=== PATIENT | male | born 1935 | race Caucasian/White ===

== ENCOUNTER 2016-11-28 11:57 | Emergency (ER) | payer MEDICARE, OTHER ==
[2016-11-28 13:45] LABS: BASO % 0.4 % (0.0-1.0); EOS # 0.2 K/mm3 (0.0-0.50); EOS % 3.3 % (0.0-3.0); LARGE UNSTAINED CELL # 0.1 K/mm3 (0.0-0.4); LARGE UNSTAINED CELL % 1.5 % (0.0-4.0); LYMPH # 0.9 K/mm3 (1.5-4.5); LYMPH % 12.8 % (24.0-44.0); MEAN CORPUSCULAR HGB CONC 32.7 g/dl (32.0-36.5); MEAN CORPUSCULAR VOLUME 91.8 fl (80.0-96.0); MONO # 0.3 K/mm3 (0.0-0.8); MONO % 4.5 % (0.0-5.0); NEUTROPHILS # 4.6 K/mm3 (1.8-7.7); NEUTROPHILS % 77.6 % (36.0-66.0); PLATELET COUNT, AUTOMATED 143 k/mm3 (150-450); RED CELL DISTRIBUTION WIDTH 15.8 % (11.5-14.5); WHITE BLOOD COUNT 5.9 K/mm3 (4.0-10.0)
[2016-11-28 14:04] LABS: ALBUMIN/GLOBULIN RATIO 0.67 (1.00-1.93); ALKALINE PHOSPHATASE 75 U/L (45-117); ALT/SGPT 29 U/L (12-78); ANION GAP 10 MEQ/L (8-16); AST/SGOT 22 U/L (15-37); BILIRUBIN,TOTAL 0.3 MG/DL (0.2-1.0); BLOOD UREA NITROGEN 31 MG/DL (7-18); CALCIUM LEVEL 8.1 MG/DL (8.8-10.2); CARBON DIOXIDE LEVEL 24 MEQ/L (21-32); CHLORIDE LEVEL 108 MEQ/L (98-107); CREATININE FOR GFR 0.75 MG/DL (0.70-1.30); GLOMERULAR FILTRATION RATE > 60.0 (>35); GLUCOSE, FASTING 97 MG/DL (83-110); POTASSIUM SERUM 4.3 MEQ/L (3.5-5.1); SODIUM LEVEL 142 MEQ/L (136-145)
--- NOTE | 2016-11-28 15:29 | EDDOCDS ---
Nurse's Notes [facility] Name: Ezekiel Pal Age: 81 yrs Sex: Male : 1935 Arrival Date: 11/28/2016 Time: 11:57 Bed I3 / M3 Private MD: Nicole Toth A Diagnosis: Gastrostomy complications;Encounter for attention to gastrostomy Presentation: 11/28 12:06 Presenting complaint: Patient states: has a feeding tube the stitch came out and the dsf tube moves and there was some green drainage noted around the tube. Pt had the feeding tube placed in [place] . pt wants his feeding tube checked. Adult Sepsis Screening: The patient does not have new or worsening altered mentation. Patient's respiratory rate is less than 22. Systolic blood pressure is greater than 100. Patient has a qSOFA score of 0- Negative Sepsis Screen. Suicide/Homicide risk assessment- the patient denies having any suicidal and/or homicidal ideations and does not present with any other emotional, behavioral or mental health complaints. Status: Patient is not a multimedia services manager or dependent. Transition of care: patient was not received from another setting of care. 12:06 Method Of Arrival: Walkin/Carried/Asstd dsf 12:06 Acuity: ABDOUL Level 4 dsf Triage Assessment: 12:13 General: Appears in no apparent distress, Behavior is appropriate for age, cooperative. dsf Pain: Denies pain. Neurological: Level of Consciousness is awake, alert. GI: Reports green stuff around the feeding tube. Historical: - Allergies: Demerol (heart stops); - Home Meds: 1. Protonix 40 mg Oral TbEC 1 tab once daily (Last dose: 11/27/2016) 2. dexamethasone 2 mg Oral tab as needed (Last dose: 11/28/2016 08:45) 3. digoxin 125 mcg Oral tab 1 tab once daily (Last dose: 11/28/2016 08:45) 4. losartan 50 mg oral tab 1 tab once daily (Last dose: 11/28/2016 08:45) 5. Spiriva with HandiHaler 18 mcg Inhl CpDv 1 cap once daily (Last dose: 11/28/2016 08:45) 6. asmanex twist inhaler 220 mcg nightly (Last dose: 11/27/2016) 7. ventolin inhaler 2 puff as needed (Last dose: 11/28/2016 09:00) 8. diphenoxylate-atropine 2.5-0.025 mg Oral tab as needed (Last dose: 11/28/2016 09:15) 9. cyramza every wednesday chemo treatment 10. fentanyl 25 mcg/hr Topical pt72 1 patch every 72 hours due to be changed today - PMHx: esphogeal cancer; COPD; GERD; Irregular heart rate; - PSHx: feeding tube; stomach surgery; Gall Bladder Removal; Appendectomy; Tonsillectomy; Adenoidectomy; - Social history: Smoking status: Patient states former smoker of tobacco. No barriers to communication noted, The patient speaks fluent Angolan, Speaks appropriately for age. - Family history: No immediate family members are acutely ill. - : The pt / caregiver states he / she is not on anticoagulants. Home medication list is obtained from the patient. - Exposure Risk Screening:: None identified. Screenin:56 Screening information is obtained from the patient. Primary language is Angolan. Fall jam1 risk: No risks identified. Assistance ADL's: requires no assistance with activities of daily living. Abuse/DV Screen: The patient / caregiver reports he/she is: not in a situation that causes fear, pain or injury. Nutritional screening: No deficits noted. Exposure Risk Screening: None identified. Advance Directives: Currently, there is a health care proxy, daughter of pt agata jose. There is an active DNR order but there is no copy available at this time. There is a living will, but a copy is not available at this time. There is an active Power of Supervisor [employer], daughter agata jose. Advance directive information does not know if advance directives have been placed in a prior [facility] medical record. Further advance directive information is declined. 13:02 Nutritional screening: On feeding tube. jam1 15:26 home support is adequate. srm Assessment: 12:46 General: Appears in no apparent distress, Behavior is appropriate for age, cooperative. mb9 Pain: Location: right upper quadrant and right lower quadrant. incision site. Pain currently is 3 out of 10 on a pain scale. Respiratory: Airway is patent Respiratory effort is even, unlabored. GI: Reports pt states, "The stitch came out of my feeding tube and its been moving around can you ultrasound it and make sure it all looks ok?". pt reports he fed himself this am with no apparent problem. pt has a small amount of drainage to the dressing that is present. 15:26 Reassessment: Patient appears in no apparent distress at this time. Patient states srm feeling better. Patient states symptoms have improved. General: Appears in no apparent distress, comfortable, Behavior is appropriate for age, cooperative. Respiratory: Airway is patent Respiratory effort is even, unlabored. Vital Signs: 12:01 BP 129 / 82; Pulse 88; Resp 18 S; Temp 96.6(O); Pulse Ox 97% on R/A; Weight 65.77 kg gr2 (R); Height 6 ft. 0 in. (182.88 cm); Pain 4/10; 15:26 BP 122 / 78; Pulse 72; Resp 17; Temp 98.7; Pulse Ox 98% ; srm 12:01 Body Mass Index 19.67 (65.77 kg, 182.88 cm) gr2 Vitals: 12:01 Log In Time: November 28, 2016 at 12:01. gr2 ED Course: 11:59 Patient visited by Tran Jaime. gr2 11:59 Nicole Toth is Private Physician. gr2 11:59 Patient moved to Waiting gr2 12:03 Patient visited by Tran Jaime. gr2 12:04 Patient moved to Pre RCE gr2 12:08 Triage Initiated dsf 12:16 Patient moved to I3 / M3 dsf 12:56 Pt greeted and oriented to ED. Patient advised of names of staff involved in care, jam1 location of call [place], wait times and NPO status. Patient has correct armband on for positive identification. Bed in low position. Call light in reach. Side rails up X 1. Door closed. 13:11 Esperanza Mitchell PA-C is PHCP. ef1 13:11 Ginny Pena MD is Attending Physician. ef1 13:11 PHCP role handed off by Esperanza Mitchell PA-C btw 13:11 Orville Garcia PA is PHCP. btw 13:12 Patient visited by Orville Garcia PA. btw 13:38 CBC with Diff Sent. nb2 13:38 Complete Comphrensive Metabolic Sent. nb2 13:38 Wound Culture & GS - All Other Sources Sent. nb2 13:59 Dressings: 4X4s X 1; pts feeding tube dressing changed at this time. site appeared to mb9 have a moderate amount of purulent drainage present that smelled foul. dressing replaced with 1 4x4. 14:01 [facility] Payment Agreement was scanned into [employer] and attached to record. lg 14:02 Patient visited by David Mendiola RN. mb9 15:03 Guilherme Raphael MD is Referral Physician. btw 15:26 The patient / caregiver is instructed regarding the plan of care and ED course. srm 15:26 No IV's were initiated during this patient's visit. No procedures done that require srm assistance. Order Results: Lab Order: CBC with Diff; SPEC'M 11/28/16 13:29 Test: WHITE BLOOD COUNT; Value: 5.9; Range: 4.0-10.0; Units: K/mm3; Status: F Test: RED BLOOD COUNT; Value: 3.66; Range: 4.30-6.10; Abnormal: Below low normal; Units: M/mm3; Status: F Test: HEMOGLOBIN; Value: 11.0; Range: 14.0-18.0; Abnormal: Below low normal; Units: g/dl; Status: F Test: HEMATOCRIT; Value: 33.6; Range: 42.0-52.0; Abnormal: Below low normal; Units: %; Status: F Test: MEAN CORPUSCULAR VOLUME; Value: 91.8; Range: 80.0-96.0; Units: fl; Status: F Test: MEAN CORPUSCULAR HEMOGLOBIN; Value: 30.0; Range: 27.0-33.0; Units: pg; Status: F Test: MEAN CORPUSCULAR HGB CONC; Value: 32.7; Range: 32.0-36.5; Units: g/dl; Status: F Test: RED CELL DISTRIBUTION WIDTH; Value: 15.8; Range: 11.5-14.5; Abnormal: Above high normal; Units: %; Status: F Test: PLATELET COUNT, AUTOMATED; Value: 143; Range: 150-450; Abnormal: Below low normal; Units: k/mm3; Status: F Test: NEUTROPHILS %; Value: 77.6; Range: 36.0-66.0; Abnormal: Above high normal; Units: %; Status: F Test: LYMPH %; Value: 12.8; Range: 24.0-44.0; Abnormal: Below low normal; Units: %; Status: F Test: MONO %; Value: 4.5; Range: 0.0-5.0; Units: %; Status: F Test: EOS %; Value: 3.3; Range: 0.0-3.0; Abnormal: Above high normal; Units: %; Status: F Test: BASO %; Value: 0.4; Range: 0.0-1.0; Units: %; Status: F Test: LARGE UNSTAINED CELL %; Value: 1.5; Range: 0.0-4.0; Units: %; Status: F Test: NEUTROPHILS #; Value: 4.6; Range: 1.8-7.7; Units: K/mm3; Status: F Test: LYMPH #; Value: 0.9; Range: 1.5-4.5; Abnormal: Below low normal; Units: K/mm3; Status: F Test: MONO #; Value: 0.3; Range: 0.0-0.8; Units: K/mm3; Status: F Test: EOS #; Value: 0.2; Range: 0.0-0.50; Units: K/mm3; Status: F Test: BASO #; Value: 0.0; Range: 0.0-0.2; Units: K/mm3; Status: F Test: LARGE UNSTAINED CELL #; Value: 0.1; Range: 0.0-0.4; Units: K/mm3; Status: F Lab Order: Complete Comphrensive Metabolic; SPEC'M 11/28/16 13:29 Test: GLUCOSE, FASTING; Value: 97; Range: 83-110; Units: MG/DL; Status: F Test: BLOOD UREA NITROGEN; Value: 31; Range: 7-18; Abnormal: Above high normal; Units: MG/DL; Status: F Test: CREATININE FOR GFR; Value: 0.75; Range: 0.70-1.30; Units: MG/DL; Status: F Test: GLOMERULAR FILTRATION RATE; Value: > 60.0; Range: >35; Status: F Test: SODIUM LEVEL; Value: 142; Range: 136-145; Units: MEQ/L; Status: F Test: POTASSIUM SERUM; Value: 4.3; Range: 3.5-5.1; Units: MEQ/L; Status: F Test: CHLORIDE LEVEL; Value: 108; Range: 98-107; Abnormal: Above high normal; Units: MEQ/L; Status: F Test: CARBON DIOXIDE LEVEL; Value: 24; Range: 21-32; Units: MEQ/L; Status: F Test: ANION GAP; Value: 10; Range: 8-16; Units: MEQ/L; Status: F Test: CALCIUM LEVEL; Value: 8.1; Range: 8.8-10.2; Abnormal: Below low normal; Units: MG/DL; Status: F Test: AST/SGOT; Value: 22; Range: 15-37; Units: U/L; Status: F Test: ALT/SGPT; Value: 29; Range: 12-78; Units: U/L; Status: F Test: ALKALINE PHOSPHATASE; Value: 75; Range: 45-117; Units: U/L; Status: F Test: BILIRUBIN,TOTAL; Value: 0.3; Range: 0.2-1.0; Units: MG/DL; Status: F Test: TOTAL PROTEIN; Value: 5.0; Range: 6.4-8.2; Abnormal: Below low normal; Units: GM/DL; Status: F Test: ALBUMIN; Value: 2.0; Range: 3.2-5.2; Abnormal: Below low normal; Units: GM/DL; Status: F Test: ALBUMIN/GLOBULIN RATIO; Value: 0.67; Range: 1.00-1.93; Abnormal: Below low normal; Status: F Test Note: ; Units are mL/min/1.73 m2 Chronic Kidney Disease Staging per NKF: Stage I & II GFR >=60 Normal to Mildly Decreased Stage III GFR 30-59 Moderately Decreased Stage IV GFR 15-29 Severely Decreased Stage V GFR <15 Very Little GFR Left ESRD GFR <15 on ACQUISITION PROFESSIONAL Lab Order: ESR; SPEC'M 11/28/16 13:29 Test: ERYTHROCYTE SEDIMENTATION RATE; Value: 16; Range: 0-20; Units: mm/hr; Status: F Lab Order: C REACTIVE PROTEIN QUANTITATIV; SPEC'M 11/28/16 13:29 Test: C REACTIVE PROTEIN QUANTITATIV; Value: 1.48; Range: 0.00-0.30; Abnormal: Above high normal; Units: MG/DL; Status: F Outcome: 15:03 Discharge ordered by Provider. bt 15:26 Discharge Assessment: Patient awake, alert and oriented x 3. No cognitive and/or srm functional deficits noted. Patient verbalized understanding of disposition instructions. patient administered narcotics - no. The following High Risk Discharge criteria are identified: None. Discharged to home ambulatory. Condition: good Condition: stable Condition: improved. Discharge instructions given to patient, Instructed on discharge instructions, follow up and referral plans. medication usage, Demonstrated understanding of instructions, medications, Pt was receptive of discharge instructions/ teaching. Prescriptions given X 2. No special radiology studies were completed. Property :Personal belongings accompany Pt. 15:28 Patient left the ED. srm Signatures: Irina Dahl, RN RN srm Sara Brown, PEG SEMAPHORE OPERATOR jam1 Melissa Pate, Reg Reg lg Esperanza Mitchell, PA-C PA-C ef1 Orville Garcia, Mamta Justice RN RN dsf Tran Jaime gr2 David MendiolaRN RN mb9 Renate Preciado2 Corrections: (The following items were deleted from the chart) 12:14 12:06 Presenting complaint: Patient states: has a feeding tube the stitch came out and dsf the tube moves and there was some green drainage noted around the tube. Pt had the feeding tube placed in [place] ds 12:14 12:06 Acuity: ABDOUL Level 3 dsf dsf MTDD
--- NOTE | 2016-11-28 15:29 | EDDOCDS ---
Physician Documentation [facility] Name: Ezekiel Pal Age: 81 yrs Sex: Male : 1935 Arrival Date: 11/28/2016 Time: 11:57 Bed I3 / M3 Private MD: Nicole Toth A Disposition: 11/28/16 15:03 Discharged to Home/Self Care. Impression: Gastrostomy complications, Encounter for attention to gastrostomy. - Condition is Stable. - Discharge Instructions: Gastrostomy Tube Home Guide, Adult, PEG, Home Care, [id number]. - Prescriptions for Cipro 500 mg Oral Tablet - take 1 tablet by ORAL route every 12 hours; 14 tablet. Flagyl 500 mg Oral Tablet - take 1 tablet by ORAL route every 8 hours for 10 days; 30 tablet. - Medication Reconciliation, Local Pharmacy Hours form. - Follow up: Guilherme Raphael MD; When: 2 - 3 days; Reason: Further diagnostic work-up, Recheck today's complaints, Continuance of care. - Problem is new. - Symptoms are unchanged. Historical: - Allergies: Demerol (heart stops); - Home Meds: 1. Protonix 40 mg Oral TbEC 1 tab once daily (Last dose: 11/27/2016) 2. dexamethasone 2 mg Oral tab as needed (Last dose: 11/28/2016 08:45) 3. digoxin 125 mcg Oral tab 1 tab once daily (Last dose: 11/28/2016 08:45) 4. losartan 50 mg oral tab 1 tab once daily (Last dose: 11/28/2016 08:45) 5. Spiriva with HandiHaler 18 mcg Inhl CpDv 1 cap once daily (Last dose: 11/28/2016 08:45) 6. asmanex twist inhaler 220 mcg nightly (Last dose: 11/27/2016) 7. ventolin inhaler 2 puff as needed (Last dose: 11/28/2016 09:00) 8. diphenoxylate-atropine 2.5-0.025 mg Oral tab as needed (Last dose: 11/28/2016 09:15) 9. cyramza every wednesday chemo treatment 10. fentanyl 25 mcg/hr Topical pt72 1 patch every 72 hours due to be changed today - PMHx: esphogeal cancer; COPD; GERD; Irregular heart rate; - PSHx: feeding tube; stomach surgery; Gall Bladder Removal; Appendectomy; Tonsillectomy; Adenoidectomy; - Social history: Smoking status: Patient states former smoker of tobacco. No barriers to communication noted, The patient speaks fluent Bangladeshi, Speaks appropriately for age. - Family history: No immediate family members are acutely ill. - : The pt / caregiver states he / she is not on anticoagulants. Home medication list is obtained from the patient. - Exposure Risk Screening:: None identified. Vital Signs: 11/28 12:01 BP 129 / 82; Pulse 88; Resp 18 S; Temp 96.6(O); Pulse Ox 97% on R/A; Weight 65.77 kg / gr2 145 lbs (R); Height 6 ft. 0 in. (182.88 cm); Pain 4/10; 15:26 BP 122 / 78; Pulse 72; Resp 17; Temp 98.7; Pulse Ox 98% ; srm 12:01 Body Mass Index 19.67 (65.77 kg, 182.88 cm) gr2 MDM: 13:18 Financial registration complete. lg 13:24 CBC with Diff Ordered. EDMS 13:24 Complete Comphrensive Metabolic Ordered. EDMS 13:24 Wound Culture & GS - All Other Sources Ordered. EDMS 13:51 CBC with Diff Reviewed. btw 13:52 ESR Ordered. EDMS 14:01 [facility] Payment Agreement was scanned into [employer] and attached to record. lg 14:06 C REACTIVE PROTEIN QUANTITATIV Ordered. EDMS 14:48 Complete Comphrensive Metabolic Reviewed. btw 14:48 C REACTIVE PROTEIN QUANTITATIV Reviewed. btw 14:48 ESR Reviewed. btw Signatures: Dispatcher [employer] EDMS Irina Dahl RN RN srm Melissa Pate, Reg Reg lg Orville Garcia PA PA btw Mamta Cavanaugh RN RN dsf The chart was reviewed and I authenticate all verbal orders and agree with the evaluation and treatment provided.Corrections: (The following items were deleted from the chart) 14:06 13:52 C REACTIVE PROTEIN QUANTITATIV+LAB ordered. EDMS EDMS Attachments: 14:01 [facility] Payment Agreement lg MTDD
--- NOTE | 2016-11-30 16:29 | EDDOCDS ---
Physician Documentation [facility] Name: Ezekiel Pal Age: 81 yrs Sex: Male : 1935 Arrival Date: 11/28/2016 Time: 11:57 Bed I3 / M3 Private MD: Nicole Toth A Disposition: 11/28/16 15:03 Discharged to Home/Self Care. Impression: Gastrostomy complications, Encounter for attention to gastrostomy. - Condition is Stable. - Discharge Instructions: Gastrostomy Tube Home Guide, Adult, PEG, Home Care, [id number]. - Prescriptions for Cipro 500 mg Oral Tablet - take 1 tablet by ORAL route every 12 hours; 14 tablet. Flagyl 500 mg Oral Tablet - take 1 tablet by ORAL route every 8 hours for 10 days; 30 tablet. - Medication Reconciliation, Local Pharmacy Hours form. - Follow up: Guilherme Raphael MD; When: 2 - 3 days; Reason: Further diagnostic work-up, Recheck today's complaints, Continuance of care. - Problem is new. - Symptoms are unchanged. Historical: - Allergies: Demerol (heart stops); - Home Meds: 1. Protonix 40 mg Oral TbEC 1 tab once daily (Last dose: 11/27/2016) 2. dexamethasone 2 mg Oral tab as needed (Last dose: 11/28/2016 08:45) 3. digoxin 125 mcg Oral tab 1 tab once daily (Last dose: 11/28/2016 08:45) 4. losartan 50 mg oral tab 1 tab once daily (Last dose: 11/28/2016 08:45) 5. Spiriva with HandiHaler 18 mcg Inhl CpDv 1 cap once daily (Last dose: 11/28/2016 08:45) 6. asmanex twist inhaler 220 mcg nightly (Last dose: 11/27/2016) 7. ventolin inhaler 2 puff as needed (Last dose: 11/28/2016 09:00) 8. diphenoxylate-atropine 2.5-0.025 mg Oral tab as needed (Last dose: 11/28/2016 09:15) 9. cyramza every wednesday chemo treatment 10. fentanyl 25 mcg/hr Topical pt72 1 patch every 72 hours due to be changed today - PMHx: esphogeal cancer; COPD; GERD; Irregular heart rate; - PSHx: feeding tube; stomach surgery; Gall Bladder Removal; Appendectomy; Tonsillectomy; Adenoidectomy; - Social history: Smoking status: Patient states former smoker of tobacco. No barriers to communication noted, The patient speaks fluent Malian, Speaks appropriately for age. - Family history: No immediate family members are acutely ill. - : The pt / caregiver states he / she is not on anticoagulants. Home medication list is obtained from the patient. - Exposure Risk Screening:: None identified. Vital Signs: 11/28 12:01 BP 129 / 82; Pulse 88; Resp 18 S; Temp 96.6(O); Pulse Ox 97% on R/A; Weight 65.77 kg / gr2 145 lbs (R); Height 6 ft. 0 in. (182.88 cm); Pain 4/10; 15:26 BP 122 / 78; Pulse 72; Resp 17; Temp 98.7; Pulse Ox 98% ; srm 12:01 Body Mass Index 19.67 (65.77 kg, 182.88 cm) gr2 MDM: 13:18 Financial registration complete. lg 13:24 CBC with Diff Ordered. EDMS 13:24 Complete Comphrensive Metabolic Ordered. EDMS 13:24 Wound Culture & GS - All Other Sources Ordered. EDMS 13:51 CBC with Diff Reviewed. btw 13:52 ESR Ordered. EDMS 14:01 [facility] Payment Agreement was scanned into [employer] and attached to record. lg 14:06 C REACTIVE PROTEIN QUANTITATIV Ordered. EDMS 14:48 Complete Comphrensive Metabolic Reviewed. btw 14:48 C REACTIVE PROTEIN QUANTITATIV Reviewed. btw 14:48 ESR Reviewed. btw 18:10 T-Sheet-- Draft Copy was scanned into [employer] and attached to record. klr Signatures: Dispatcher [employer] EDMS Irina Dahl RN RN srm Ganter, LoriLee, Emmanuel Reg lg Orville Garcia PA PA btw Fuller, Desiree, RN RN dsf Redder, Kathie klr The chart was reviewed and I authenticate all verbal orders and agree with the evaluation and treatment provided.Corrections: (The following items were deleted from the chart) 14:06 13:52 C REACTIVE PROTEIN QUANTITATIV+LAB ordered. EDMS EDMS Attachments: 14:01 [facility] Payment Agreement lg 18:10 T-Sheet-- Draft Copy klr Chart Complete MTDD
--- NOTE | 2016-11-30 16:29 | EDDOCDS ---
Physician Documentation [facility] [place] Name: Ezekiel Pal Age: 81 yrs Sex: Male : 1935 Arrival Date: 11/28/2016 Time: 11:57 Bed I3 / M3 Private MD: Nicole Toth A Disposition: 11/28/16 15:03 Discharged to Home/Self Care. Impression: Gastrostomy complications, Encounter for attention to gastrostomy. - Condition is Stable. - Discharge Instructions: Gastrostomy Tube Home Guide, Adult, PEG, Home Care, [id number]. - Prescriptions for Cipro 500 mg Oral Tablet - take 1 tablet by ORAL route every 12 hours; 14 tablet. Flagyl 500 mg Oral Tablet - take 1 tablet by ORAL route every 8 hours for 10 days; 30 tablet. - Medication Reconciliation, Local Pharmacy Hours form. - Follow up: Guilherme Raphael MD; When: 2 - 3 days; Reason: Further diagnostic work-up, Recheck today's complaints, Continuance of care. - Problem is new. - Symptoms are unchanged. Historical: - Allergies: Demerol (heart stops); - Home Meds: 1. Protonix 40 mg Oral TbEC 1 tab once daily (Last dose: 11/27/2016) 2. dexamethasone 2 mg Oral tab as needed (Last dose: 11/28/2016 08:45) 3. digoxin 125 mcg Oral tab 1 tab once daily (Last dose: 11/28/2016 08:45) 4. losartan 50 mg oral tab 1 tab once daily (Last dose: 11/28/2016 08:45) 5. Spiriva with HandiHaler 18 mcg Inhl CpDv 1 cap once daily (Last dose: 11/28/2016 08:45) 6. asmanex twist inhaler 220 mcg nightly (Last dose: 11/27/2016) 7. ventolin inhaler 2 puff as needed (Last dose: 11/28/2016 09:00) 8. diphenoxylate-atropine 2.5-0.025 mg Oral tab as needed (Last dose: 11/28/2016 09:15) 9. cyramza every wednesday chemo treatment 10. fentanyl 25 mcg/hr Topical pt72 1 patch every 72 hours due to be changed today - PMHx: esphogeal cancer; COPD; GERD; Irregular heart rate; - PSHx: feeding tube; stomach surgery; Gall Bladder Removal; Appendectomy; Tonsillectomy; Adenoidectomy; - Social history: Smoking status: Patient states former smoker of tobacco. No barriers to communication noted, The patient speaks fluent Niuean, Speaks appropriately for age. - Family history: No immediate family members are acutely ill. - : The pt / caregiver states he / she is not on anticoagulants. Home medication list is obtained from the patient. - Exposure Risk Screening:: None identified. Vital Signs: 11/28 12:01 BP 129 / 82; Pulse 88; Resp 18 S; Temp 96.6(O); Pulse Ox 97% on R/A; Weight 65.77 kg / gr2 145 lbs (R); Height 6 ft. 0 in. (182.88 cm); Pain 4/10; 15:26 BP 122 / 78; Pulse 72; Resp 17; Temp 98.7; Pulse Ox 98% ; srm 12:01 Body Mass Index 19.67 (65.77 kg, 182.88 cm) gr2 MDM: 13:18 Financial registration complete. lg 13:24 CBC with Diff Ordered. EDMS 13:24 Complete Comphrensive Metabolic Ordered. EDMS 13:24 Wound Culture & GS - All Other Sources Ordered. EDMS 13:51 CBC with Diff Reviewed. btw 13:52 ESR Ordered. EDMS 14:01 [facility] Payment Agreement was scanned into [employer] and attached to record. lg 14:06 C REACTIVE PROTEIN QUANTITATIV Ordered. EDMS 14:48 Complete Comphrensive Metabolic Reviewed. btw 14:48 C REACTIVE PROTEIN QUANTITATIV Reviewed. btw 14:48 ESR Reviewed. btw 18:10 T-Sheet-- Draft Copy was scanned into [employer] and attached to record. klr Signatures: Dispatcher [employer] EDMS Irina Dahl RN RN srm Ganter, LoriLee, Emmanuel Reg lg Orville Garcia PA PA btw Fuller, Desiree, RN RN dsf Redder, Kathie klr The chart was reviewed and I authenticate all verbal orders and agree with the evaluation and treatment provided.Corrections: (The following items were deleted from the chart) 14:06 13:52 C REACTIVE PROTEIN QUANTITATIV+LAB ordered. EDMS EDMS Attachments: 14:01 [facility] Payment Agreement lg 18:10 T-Sheet-- Draft Copy klr Chart Complete MTDD
--- NOTE | 2016-11-30 16:29 | EDDOCDS ---
Nurse's Notes [facility] Name: Ezekiel Pal Age: 81 yrs Sex: Male : 1935 Arrival Date: 11/28/2016 Time: 11:57 Bed I3 / M3 Private MD: Nicole Toth A Diagnosis: Gastrostomy complications;Encounter for attention to gastrostomy Presentation: 11/28 12:06 Presenting complaint: Patient states: has a feeding tube the stitch came out and the dsf tube moves and there was some green drainage noted around the tube. Pt had the feeding tube placed in [place] . pt wants his feeding tube checked. Adult Sepsis Screening: The patient does not have new or worsening altered mentation. Patient's respiratory rate is less than 22. Systolic blood pressure is greater than 100. Patient has a qSOFA score of 0- Negative Sepsis Screen. Suicide/Homicide risk assessment- the patient denies having any suicidal and/or homicidal ideations and does not present with any other emotional, behavioral or mental health complaints. Status: Patient is not a duplicating machine servicer or dependent. Transition of care: patient was not received from another setting of care. 12:06 Method Of Arrival: Walkin/Carried/Asstd dsf 12:06 Acuity: ABDOUL Level 4 dsf Triage Assessment: 12:13 General: Appears in no apparent distress, Behavior is appropriate for age, cooperative. dsf Pain: Denies pain. Neurological: Level of Consciousness is awake, alert. GI: Reports green stuff around the feeding tube. Historical: - Allergies: Demerol (heart stops); - Home Meds: 1. Protonix 40 mg Oral TbEC 1 tab once daily (Last dose: 11/27/2016) 2. dexamethasone 2 mg Oral tab as needed (Last dose: 11/28/2016 08:45) 3. digoxin 125 mcg Oral tab 1 tab once daily (Last dose: 11/28/2016 08:45) 4. losartan 50 mg oral tab 1 tab once daily (Last dose: 11/28/2016 08:45) 5. Spiriva with HandiHaler 18 mcg Inhl CpDv 1 cap once daily (Last dose: 11/28/2016 08:45) 6. asmanex twist inhaler 220 mcg nightly (Last dose: 11/27/2016) 7. ventolin inhaler 2 puff as needed (Last dose: 11/28/2016 09:00) 8. diphenoxylate-atropine 2.5-0.025 mg Oral tab as needed (Last dose: 11/28/2016 09:15) 9. cyramza every wednesday chemo treatment 10. fentanyl 25 mcg/hr Topical pt72 1 patch every 72 hours due to be changed today - PMHx: esphogeal cancer; COPD; GERD; Irregular heart rate; - PSHx: feeding tube; stomach surgery; Gall Bladder Removal; Appendectomy; Tonsillectomy; Adenoidectomy; - Social history: Smoking status: Patient states former smoker of tobacco. No barriers to communication noted, The patient speaks fluent [place], Speaks appropriately for age. - Family history: No immediate family members are acutely ill. - : The pt / caregiver states he / she is not on anticoagulants. Home medication list is obtained from the patient. - Exposure Risk Screening:: None identified. Screenin:56 Screening information is obtained from the patient. Primary language is [place]. Fall jam1 risk: No risks identified. Assistance ADL's: requires no assistance with activities of daily living. Abuse/DV Screen: The patient / caregiver reports he/she is: not in a situation that causes fear, pain or injury. Nutritional screening: No deficits noted. Exposure Risk Screening: None identified. Advance Directives: Currently, there is a health care proxy, daughter of pt agata jose. There is an active DNR order but there is no copy available at this time. There is a living will, but a copy is not available at this time. There is an active Power of Burr Mill Operator, daughter agata jose. Advance directive information does not know if advance directives have been placed in a prior [facility] medical record. Further advance directive information is declined. 13:02 Nutritional screening: On feeding tube. jam1 15:26 home support is adequate. srm Assessment: 12:46 General: Appears in no apparent distress, Behavior is appropriate for age, cooperative. mb9 Pain: Location: right upper quadrant and right lower quadrant. incision site. Pain currently is 3 out of 10 on a pain scale. Respiratory: Airway is patent Respiratory effort is even, unlabored. GI: Reports pt states, "The stitch came out of my feeding tube and its been moving around can you ultrasound it and make sure it all looks ok?". pt reports he fed himself this am with no apparent problem. pt has a small amount of drainage to the dressing that is present. 15:26 Reassessment: Patient appears in no apparent distress at this time. Patient states srm feeling better. Patient states symptoms have improved. General: Appears in no apparent distress, comfortable, Behavior is appropriate for age, cooperative. Respiratory: Airway is patent Respiratory effort is even, unlabored. Vital Signs: 12:01 BP 129 / 82; Pulse 88; Resp 18 S; Temp 96.6(O); Pulse Ox 97% on R/A; Weight 65.77 kg gr2 (R); Height 6 ft. 0 in. (182.88 cm); Pain 4/10; 15:26 BP 122 / 78; Pulse 72; Resp 17; Temp 98.7; Pulse Ox 98% ; srm 12:01 Body Mass Index 19.67 (65.77 kg, 182.88 cm) gr2 Vitals: 12:01 Log In Time: November 28, 2016 at 12:01. gr2 ED Course: 11:59 Patient visited by Tran Jaime. gr2 11:59 Nicole Toth is Private Physician. gr2 11:59 Patient moved to Waiting gr2 12:03 Patient visited by Tran Jaime. gr2 12:04 Patient moved to Pre RCE gr2 12:08 Triage Initiated dsf 12:16 Patient moved to I3 / M3 dsf 12:56 Pt greeted and oriented to ED. Patient advised of names of staff involved in care, jam1 location of call [place], wait times and NPO status. Patient has correct armband on for positive identification. Bed in low position. Call light in reach. Side rails up X 1. Door closed. 13:11 Esperanza Mitchell PA-C is PHCP. ef1 13:11 Ginny Pena MD is Attending Physician. ef1 13:11 PHCP role handed off by Esperanza Mitchell PA-C btw 13:11 Orville Garcia PA is PHCP. btw 13:12 Patient visited by Orville Garcia PA. btw 13:38 CBC with Diff Sent. nb2 13:38 Complete Comphrensive Metabolic Sent. nb2 13:38 Wound Culture & GS - All Other Sources Sent. nb2 13:59 Dressings: 4X4s X 1; pts feeding tube dressing changed at this time. site appeared to mb9 have a moderate amount of purulent drainage present that smelled foul. dressing replaced with 1 4x4. 14:01 [facility] Payment Agreement was scanned into [employer] and attached to record. lg 14:02 Patient visited by David Mendiola RN. mb9 15:03 Guilherme Raphael MD is Referral Physician. btw 15:26 The patient / caregiver is instructed regarding the plan of care and ED course. srm 15:26 No IV's were initiated during this patient's visit. No procedures done that require srm assistance. 18:10 T-Sheet-- Draft Copy was scanned into [employer] and attached to record. klr Order Results: Lab Order: CBC with Diff; SPEC'M 11/28/16 13:29 Test: WHITE BLOOD COUNT; Value: 5.9; Range: 4.0-10.0; Units: K/mm3; Status: F Test: RED BLOOD COUNT; Value: 3.66; Range: 4.30-6.10; Abnormal: Below low normal; Units: M/mm3; Status: F Test: HEMOGLOBIN; Value: 11.0; Range: 14.0-18.0; Abnormal: Below low normal; Units: g/dl; Status: F Test: HEMATOCRIT; Value: 33.6; Range: 42.0-52.0; Abnormal: Below low normal; Units: %; Status: F Test: MEAN CORPUSCULAR VOLUME; Value: 91.8; Range: 80.0-96.0; Units: fl; Status: F Test: MEAN CORPUSCULAR HEMOGLOBIN; Value: 30.0; Range: 27.0-33.0; Units: pg; Status: F Test: MEAN CORPUSCULAR HGB CONC; Value: 32.7; Range: 32.0-36.5; Units: g/dl; Status: F Test: RED CELL DISTRIBUTION WIDTH; Value: 15.8; Range: 11.5-14.5; Abnormal: Above high normal; Units: %; Status: F Test: PLATELET COUNT, AUTOMATED; Value: 143; Range: 150-450; Abnormal: Below low normal; Units: k/mm3; Status: F Test: NEUTROPHILS %; Value: 77.6; Range: 36.0-66.0; Abnormal: Above high normal; Units: %; Status: F Test: LYMPH %; Value: 12.8; Range: 24.0-44.0; Abnormal: Below low normal; Units: %; Status: F Test: MONO %; Value: 4.5; Range: 0.0-5.0; Units: %; Status: F Test: EOS %; Value: 3.3; Range: 0.0-3.0; Abnormal: Above high normal; Units: %; Status: F Test: BASO %; Value: 0.4; Range: 0.0-1.0; Units: %; Status: F Test: LARGE UNSTAINED CELL %; Value: 1.5; Range: 0.0-4.0; Units: %; Status: F Test: NEUTROPHILS #; Value: 4.6; Range: 1.8-7.7; Units: K/mm3; Status: F Test: LYMPH #; Value: 0.9; Range: 1.5-4.5; Abnormal: Below low normal; Units: K/mm3; Status: F Test: MONO #; Value: 0.3; Range: 0.0-0.8; Units: K/mm3; Status: F Test: EOS #; Value: 0.2; Range: 0.0-0.50; Units: K/mm3; Status: F Test: BASO #; Value: 0.0; Range: 0.0-0.2; Units: K/mm3; Status: F Test: LARGE UNSTAINED CELL #; Value: 0.1; Range: 0.0-0.4; Units: K/mm3; Status: F Lab Order: Complete Comphrensive Metabolic; SPEC'M 11/28/16 13:29 Test: GLUCOSE, FASTING; Value: 97; Range: 83-110; Units: MG/DL; Status: F Test: BLOOD UREA NITROGEN; Value: 31; Range: 7-18; Abnormal: Above high normal; Units: MG/DL; Status: F Test: CREATININE FOR GFR; Value: 0.75; Range: 0.70-1.30; Units: MG/DL; Status: F Test: GLOMERULAR FILTRATION RATE; Value: > 60.0; Range: >35; Status: F Test: SODIUM LEVEL; Value: 142; Range: 136-145; Units: MEQ/L; Status: F Test: POTASSIUM SERUM; Value: 4.3; Range: 3.5-5.1; Units: MEQ/L; Status: F Test: CHLORIDE LEVEL; Value: 108; Range: 98-107; Abnormal: Above high normal; Units: MEQ/L; Status: F Test: CARBON DIOXIDE LEVEL; Value: 24; Range: 21-32; Units: MEQ/L; Status: F Test: ANION GAP; Value: 10; Range: 8-16; Units: MEQ/L; Status: F Test: CALCIUM LEVEL; Value: 8.1; Range: 8.8-10.2; Abnormal: Below low normal; Units: MG/DL; Status: F Test: AST/SGOT; Value: 22; Range: 15-37; Units: U/L; Status: F Test: ALT/SGPT; Value: 29; Range: 12-78; Units: U/L; Status: F Test: ALKALINE PHOSPHATASE; Value: 75; Range: 45-117; Units: U/L; Status: F Test: BILIRUBIN,TOTAL; Value: 0.3; Range: 0.2-1.0; Units: MG/DL; Status: F Test: TOTAL PROTEIN; Value: 5.0; Range: 6.4-8.2; Abnormal: Below low normal; Units: GM/DL; Status: F Test: ALBUMIN; Value: 2.0; Range: 3.2-5.2; Abnormal: Below low normal; Units: GM/DL; Status: F Test: ALBUMIN/GLOBULIN RATIO; Value: 0.67; Range: 1.00-1.93; Abnormal: Below low normal; Status: F Test Note: ; Units are mL/min/1.73 m2 Chronic Kidney Disease Staging per NKF: Stage I & II GFR >=60 Normal to Mildly Decreased Stage III GFR 30-59 Moderately Decreased Stage IV GFR 15-29 Severely Decreased Stage V GFR <15 Very Little GFR Left ESRD GFR <15 on TOP INSTALLER Lab Order: Wound Culture & GS - All Other Sources; SPEC'M 11/28/16 13:29 Test: GRAM STAIN; Value: GRAM STAIN RESULT; Status: F Test: GRAM STAIN; Value: MANY GRAM NEGATIVE RODS; Status: F Test: GRAM STAIN; Value: MODERATE GRAM POSITIVE COCCI IN PAIRS AND CLUSTERS; Status: F Test: GRAM STAIN; Value: MODERATE GRAM POSITIVE RODS; Status: F Test: WOUND CULTURE; Value: <EXTERNAL COMMENT eCWMed> FULL REPORT IN LAB NOTES (eCW and Medent).; Status: F Test: WOUND CULTURE; Value: ORGANISM 1: KLEBSIELLA PNEUMONIAE; Status: F Test: WOUND CULTURE; Value: KLEBSIELLA PNEUMONIAE; Status: F Test: WOUND CULTURE; Value: QUANTITY OF GROWTH MODERATE; Status: F Test: WOUND CULTURE; Value: STAPHYLOCOCCUS SP COAG NEG; Status: F Test: WOUND CULTURE; Value: QUANTITY OF GROWTH MODERATE; Status: F Test: WOUND CULTURE; Value: ALPHA STREPTOCOCCUS SPECIES; Status: F Test: WOUND CULTURE; Value: QUANTITY OF GROWTH FEW; Status: F Test: WOUND CULTURE; Value: UNIDENTIFIED ORGANISM; Status: F Test: WOUND CULTURE; Value: QUANTITY OF GROWTH MODERATE; Status: F Test: WOUND CULTURE; Status: F Test: WOUND CULTURE; Value: QUANTITY OF GROWTH FEW; Status: F Test: WOUND CULTURE; Value: ORGANISM 2: STAPHYLOCOCCUS SP COAG NEG; Status: F Test: WOUND CULTURE; Value: KLEBSIELLA PNEUMONIAE; Status: F Test: WOUND CULTURE; Value: QUANTITY OF GROWTH MODERATE; Status: F Test: WOUND CULTURE; Value: STAPHYLOCOCCUS SP COAG NEG; Status: F Test: WOUND CULTURE; Value: QUANTITY OF GROWTH MODERATE; Status: F Test: WOUND CULTURE; Value: ALPHA STREPTOCOCCUS SPECIES; Status: F Test: WOUND CULTURE; Value: QUANTITY OF GROWTH FEW; Status: F Test: WOUND CULTURE; Value: UNIDENTIFIED ORGANISM; Status: F Test: WOUND CULTURE; Value: QUANTITY OF GROWTH MODERATE; Status: F Test: WOUND CULTURE; Status: F Test: WOUND CULTURE; Value: QUANTITY OF GROWTH FEW; Status: F Test: WOUND CULTURE; Value: ORGANISM 3: ALPHA STREPTOCOCCUS SPECIES; Status: F Test: WOUND CULTURE; Value: KLEBSIELLA PNEUMONIAE; Status: F Test: WOUND CULTURE; Value: QUANTITY OF GROWTH MODERATE; Status: F Test: WOUND CULTURE; Value: STAPHYLOCOCCUS SP COAG NEG; Status: F Test: WOUND CULTURE; Value: QUANTITY OF GROWTH MODERATE; Status: F Test: WOUND CULTURE; Value: ALPHA STREPTOCOCCUS SPECIES; Status: F Test: WOUND CULTURE; Value: QUANTITY OF GROWTH FEW; Status: F Test: WOUND CULTURE; Value: UNIDENTIFIED ORGANISM; Status: F Test: WOUND CULTURE; Value: QUANTITY OF GROWTH MODERATE; Status: F Test: WOUND CULTURE; Status: F Test: WOUND CULTURE; Value: QUANTITY OF GROWTH FEW; Status: F Test: WOUND CULTURE; Value: ORGANISM 4: UNIDENTIFIED ORGANISM; Status: F Test: WOUND CULTURE; Value: KLEBSIELLA PNEUMONIAE; Status: F Test: WOUND CULTURE; Value: QUANTITY OF GROWTH MODERATE; Status: F Test: WOUND CULTURE; Value: STAPHYLOCOCCUS SP COAG NEG; Status: F Test: WOUND CULTURE; Value: QUANTITY OF GROWTH MODERATE; Status: F Test: WOUND CULTURE; Value: ALPHA STREPTOCOCCUS SPECIES; Status: F Test: WOUND CULTURE; Value: QUANTITY OF GROWTH FEW; Status: F Test: WOUND CULTURE; Value: UNIDENTIFIED ORGANISM; Status: F Test: WOUND CULTURE; Value: QUANTITY OF GROWTH MODERATE; Status: F Test: WOUND CULTURE; Status: F Test: WOUND CULTURE; Value: QUANTITY OF GROWTH FEW; Status: F Test: WOUND CULTURE; Value: ORGANISM 5: UNIDENTIFIED ORGANISM; Status: F Test: WOUND CULTURE; Value: KLEBSIELLA PNEUMONIAE; Status: F Test: WOUND CULTURE; Value: QUANTITY OF GROWTH MODERATE; Status: F Test: WOUND CULTURE; Value: STAPHYLOCOCCUS SP COAG NEG; Status: F Test: WOUND CULTURE; Value: QUANTITY OF GROWTH MODERATE; Status: F Test: WOUND CULTURE; Value: ALPHA STREPTOCOCCUS SPECIES; Status: F Test: WOUND CULTURE; Value: QUANTITY OF GROWTH FEW; Status: F Test: WOUND CULTURE; Value: UNIDENTIFIED ORGANISM; Status: F Test: WOUND CULTURE; Value: QUANTITY OF GROWTH MODERATE; Status: F Test: WOUND CULTURE; Status: F Test: WOUND CULTURE; Value: QUANTITY OF GROWTH FEW; Status: F Test: WOUND CULTURE; Value: GRAM NEG SENSI - VITEK 80; Status: F Test: WOUND CULTURE; Value: Method: VIT2; Status: F Test: WOUND CULTURE; Value: EXTD BRD SPCTRM BETA LACTAMASE -; Status: F Test: WOUND CULTURE; Value: TRIMETHOPRIM/SULFAMETHOXAZOLE <=20 S; Status: F Test: WOUND CULTURE; Value: AMPICILLIN >=32 R; Status: F Test: WOUND CULTURE; Value: GENTAMICIN <=1 S; Status: F Test: WOUND CULTURE; Value: CEFAZOLIN <=4 S; Status: F Test: WOUND CULTURE; Value: LEVOFLOXACIN <=0.12 S; Status: F Test: WOUND CULTURE; Value: TOBRAMYCIN <=1 S; Status: F Test: WOUND CULTURE; Value: CEFTRIAXONE <=1 S; Status: F Test: WOUND CULTURE; Value: CEFTAZIDIME <=1 S; Status: F Test: WOUND CULTURE; Value: AMPICILLIN/SULBACTAM 4 S; Status: F Test: WOUND CULTURE; Value: PIPERACILLIN/TAZOBACTAM <=4 S; Status: F Test: WOUND CULTURE; Value: AZTREONAM <=1 S; Status: F Test: WOUND CULTURE; Value: ERTAPENEM <=0.5 S; Status: F Test: WOUND CULTURE; Value: MEROPENEM <=0.25 S; Status: F Test: WOUND CULTURE; Value: TIGECYCLINE <=0.5 S; Status: F Test: WOUND CULTURE; Value: CEFEPIME <=1 S; Status: F Lab Order: ESR; SPEC'M 11/28/16 13:29 Test: ERYTHROCYTE SEDIMENTATION RATE; Value: 16; Range: 0-20; Units: mm/hr; Status: F Lab Order: C REACTIVE PROTEIN QUANTITATIV; SPEC'M 11/28/16 13:29 Test: C REACTIVE PROTEIN QUANTITATIV; Value: 1.48; Range: 0.00-0.30; Abnormal: Above high normal; Units: MG/DL; Status: F Outcome: 15:03 Discharge ordered by Provider. btw 15:26 Discharge Assessment: Patient awake, alert and oriented x 3. No cognitive and/or srm functional deficits noted. Patient verbalized understanding of disposition instructions. patient administered narcotics - no. The following High Risk Discharge criteria are identified: None. Discharged to home ambulatory. Condition: good Condition: stable Condition: improved. Discharge instructions given to patient, Instructed on discharge instructions, follow up and referral plans. medication usage, Demonstrated understanding of instructions, medications, Pt was receptive of discharge instructions/ teaching. Prescriptions given X 2. No special radiology studies were completed. Property :Personal belongings accompany Pt. 15:28 Patient left the ED. srm Signatures: Irina Dahl, RN RN Sara Gomez, PEG SENIOR PRODUCER jam1 Melissa Pate, Reg Reg lg Fejacinta, Esperanza, PA-C PA-C ef1 Orville Garcia PA PA btw Mamta Cavanaugh RN RN dsf Tran Jaime gr2 David MendiolaRN RN mb9 Jenni Lowe Nicole nb2 Corrections: (The following items were deleted from the chart) : 12:06 Presenting complaint: Patient states: has a feeding tube the stitch came out and dsf the tube moves and there was some green drainage noted around the tube. Pt had the feeding tube placed in [place] ds 12:06 Acuity: ABDOUL Level 3 dsf dsf Chart Complete MTDD
--- NOTE | 2016-12-03 13:52 | EDDOCDS ---
Physician Documentation [facility] Name: Ezekiel Pal Age: 81 yrs Sex: Male : 1935 Arrival Date: 11/28/2016 Time: 11:57 Bed I3 / M3 Private MD: Nicole Toth A Disposition: 11/28/16 15:03 Discharged to Home/Self Care. Impression: Gastrostomy complications, Encounter for attention to gastrostomy. - Condition is Stable. - Discharge Instructions: Gastrostomy Tube Home Guide, Adult, PEG, Home Care, [id number]. - Prescriptions for Cipro 500 mg Oral Tablet - take 1 tablet by ORAL route every 12 hours; 14 tablet. Flagyl 500 mg Oral Tablet - take 1 tablet by ORAL route every 8 hours for 10 days; 30 tablet. - Medication Reconciliation, Local Pharmacy Hours form. - Follow up: Guilherme Raphael MD; When: 2 - 3 days; Reason: Further diagnostic work-up, Recheck today's complaints, Continuance of care. - Problem is new. - Symptoms are unchanged. Historical: - Allergies: Demerol (heart stops); - Home Meds: 1. Protonix 40 mg Oral TbEC 1 tab once daily (Last dose: 11/27/2016) 2. dexamethasone 2 mg Oral tab as needed (Last dose: 11/28/2016 08:45) 3. digoxin 125 mcg Oral tab 1 tab once daily (Last dose: 11/28/2016 08:45) 4. losartan 50 mg oral tab 1 tab once daily (Last dose: 11/28/2016 08:45) 5. Spiriva with HandiHaler 18 mcg Inhl CpDv 1 cap once daily (Last dose: 11/28/2016 08:45) 6. asmanex twist inhaler 220 mcg nightly (Last dose: 11/27/2016) 7. ventolin inhaler 2 puff as needed (Last dose: 11/28/2016 09:00) 8. diphenoxylate-atropine 2.5-0.025 mg Oral tab as needed (Last dose: 11/28/2016 09:15) 9. cyramza every wednesday chemo treatment 10. fentanyl 25 mcg/hr Topical pt72 1 patch every 72 hours due to be changed today - PMHx: esphogeal cancer; COPD; GERD; Irregular heart rate; - PSHx: feeding tube; stomach surgery; Gall Bladder Removal; Appendectomy; Tonsillectomy; Adenoidectomy; - Social history: Smoking status: Patient states former smoker of tobacco. No barriers to communication noted, The patient speaks fluent [place]in, Speaks appropriately for age. - Family history: No immediate family members are acutely ill. - : The pt / caregiver states he / she is not on anticoagulants. Home medication list is obtained from the patient. - Exposure Risk Screening:: None identified. Vital Signs: 11/28 12:01 BP 129 / 82; Pulse 88; Resp 18 S; Temp 96.6(O); Pulse Ox 97% on R/A; Weight 65.77 kg / gr2 145 lbs (R); Height 6 ft. 0 in. (182.88 cm); Pain 4/10; 15:26 BP 122 / 78; Pulse 72; Resp 17; Temp 98.7; Pulse Ox 98% ; srm 12:01 Body Mass Index 19.67 (65.77 kg, 182.88 cm) gr2 MDM: 13:18 Financial registration complete. lg 13:24 CBC with Diff Ordered. EDMS 13:24 Complete Comphrensive Metabolic Ordered. EDMS 13:24 Wound Culture & GS - All Other Sources Ordered. EDMS 13:51 CBC with Diff Reviewed. btw 13:52 ESR Ordered. EDMS 14:01 [facility] Payment Agreement was scanned into [email or web address] and attached to record. lg 14:06 C REACTIVE PROTEIN QUANTITATIV Ordered. EDMS 14:48 Complete Comphrensive Metabolic Reviewed. btw 14:48 C REACTIVE PROTEIN QUANTITATIV Reviewed. btw 14:48 ESR Reviewed. btw 18:10 T-Sheet-- Draft Copy was scanned into [email or web address] and attached to record. klr Signatures: Dispatcher [employer] EDMS Irina Dahl RN RN srm Ganter, LoriLee, Emmanuel Reg lg Orville Garcia PA PA btw Fuller, Desiree, RN RN dsf Redder, Kathie klr The chart was reviewed and I authenticate all verbal orders and agree with the evaluation and treatment provided.Corrections: (The following items were deleted from the chart) 14:06 13:52 C REACTIVE PROTEIN QUANTITATIV+LAB ordered. EDMS EDMS Attachments: 14:01 [facility] Payment Agreement lg 18:10 T-Sheet-- Draft Copy klr MTDD
--- NOTE | 2016-12-03 13:52 | EDDOCDS ---
Physician Documentation [facility] Name: Ezekiel Pal Age: 81 yrs Sex: Male : 1935 Arrival Date: 11/28/2016 Time: 11:57 Bed I3 / M3 Private MD: Nicole Toth A Disposition: 11/28/16 15:03 Discharged to Home/Self Care. Impression: Gastrostomy complications, Encounter for attention to gastrostomy. - Condition is Stable. - Discharge Instructions: Gastrostomy Tube Home Guide, Adult, PEG, Home Care, [id number]. - Prescriptions for Cipro 500 mg Oral Tablet - take 1 tablet by ORAL route every 12 hours; 14 tablet. Flagyl 500 mg Oral Tablet - take 1 tablet by ORAL route every 8 hours for 10 days; 30 tablet. - Medication Reconciliation, Local Pharmacy Hours form. - Follow up: Guilherme Raphael MD; When: 2 - 3 days; Reason: Further diagnostic work-up, Recheck today's complaints, Continuance of care. - Problem is new. - Symptoms are unchanged. Historical: - Allergies: Demerol (heart stops); - Home Meds: 1. Protonix 40 mg Oral TbEC 1 tab once daily (Last dose: 11/27/2016) 2. dexamethasone 2 mg Oral tab as needed (Last dose: 11/28/2016 08:45) 3. digoxin 125 mcg Oral tab 1 tab once daily (Last dose: 11/28/2016 08:45) 4. losartan 50 mg oral tab 1 tab once daily (Last dose: 11/28/2016 08:45) 5. Spiriva with HandiHaler 18 mcg Inhl CpDv 1 cap once daily (Last dose: 11/28/2016 08:45) 6. asmanex twist inhaler 220 mcg nightly (Last dose: 11/27/2016) 7. ventolin inhaler 2 puff as needed (Last dose: 11/28/2016 09:00) 8. diphenoxylate-atropine 2.5-0.025 mg Oral tab as needed (Last dose: 11/28/2016 09:15) 9. cyramza every wednesday chemo treatment 10. fentanyl 25 mcg/hr Topical pt72 1 patch every 72 hours due to be changed today - PMHx: esphogeal cancer; COPD; GERD; Irregular heart rate; - PSHx: feeding tube; stomach surgery; Gall Bladder Removal; Appendectomy; Tonsillectomy; Adenoidectomy; - Social history: Smoking status: Patient states former smoker of tobacco. No barriers to communication noted, The patient speaks fluent Belarusian, Speaks appropriately for age. - Family history: No immediate family members are acutely ill. - : The pt / caregiver states he / she is not on anticoagulants. Home medication list is obtained from the patient. - Exposure Risk Screening:: None identified. Vital Signs: 11/28 12:01 BP 129 / 82; Pulse 88; Resp 18 S; Temp 96.6(O); Pulse Ox 97% on R/A; Weight 65.77 kg / gr2 145 lbs (R); Height 6 ft. 0 in. (182.88 cm); Pain 4/10; 15:26 BP 122 / 78; Pulse 72; Resp 17; Temp 98.7; Pulse Ox 98% ; srm 12:01 Body Mass Index 19.67 (65.77 kg, 182.88 cm) gr2 MDM: 13:18 Financial registration complete. lg 13:24 CBC with Diff Ordered. EDMS 13:24 Complete Comphrensive Metabolic Ordered. EDMS 13:24 Wound Culture & GS - All Other Sources Ordered. EDMS 13:51 CBC with Diff Reviewed. btw 13:52 ESR Ordered. EDMS 14:01 [facility] Payment Agreement was scanned into [email or web address] and attached to record. lg 14:06 C REACTIVE PROTEIN QUANTITATIV Ordered. EDMS 14:48 Complete Comphrensive Metabolic Reviewed. btw 14:48 C REACTIVE PROTEIN QUANTITATIV Reviewed. btw 14:48 ESR Reviewed. btw 18:10 T-Sheet-- Draft Copy was scanned into [email or web address] and attached to record. klr Signatures: Dispatcher [employer] EDMS Irina Dahl RN RN srm Ganter, LoriLee, Emmanuel Reg lg Orville Garcia PA PA btw Fuller, Desiree, RN RN dsf Redder, Kathie klr The chart was reviewed and I authenticate all verbal orders and agree with the evaluation and treatment provided.Corrections: (The following items were deleted from the chart) 14:06 13:52 C REACTIVE PROTEIN QUANTITATIV+LAB ordered. EDMS EDMS Attachments: 14:01 [facility] Payment Agreement lg 18:10 T-Sheet-- Draft Copy klr MTDD
--- NOTE | 2016-12-03 13:54 | EDDOCDS ---
Physician Documentation [facility] Name: Ezekiel Pal Age: 81 yrs Sex: Male : 1935 Arrival Date: 11/28/2016 Time: 11:57 Bed I3 / M3 Private MD: Nicole Toth A Disposition: 11/28/16 15:03 Discharged to Home/Self Care. Impression: Gastrostomy complications, Encounter for attention to gastrostomy. - Condition is Stable. - Discharge Instructions: Gastrostomy Tube Home Guide, Adult, PEG, Home Care, [id number]. - Prescriptions for Cipro 500 mg Oral Tablet - take 1 tablet by ORAL route every 12 hours; 14 tablet. Flagyl 500 mg Oral Tablet - take 1 tablet by ORAL route every 8 hours for 10 days; 30 tablet. - Medication Reconciliation, Local Pharmacy Hours form. - Follow up: Guilherme Raphael MD; When: 2 - 3 days; Reason: Further diagnostic work-up, Recheck today's complaints, Continuance of care. - Problem is new. - Symptoms are unchanged. Historical: - Allergies: Demerol (heart stops); - Home Meds: 1. Protonix 40 mg Oral TbEC 1 tab once daily (Last dose: 11/27/2016) 2. dexamethasone 2 mg Oral tab as needed (Last dose: 11/28/2016 08:45) 3. digoxin 125 mcg Oral tab 1 tab once daily (Last dose: 11/28/2016 08:45) 4. losartan 50 mg oral tab 1 tab once daily (Last dose: 11/28/2016 08:45) 5. Spiriva with HandiHaler 18 mcg Inhl CpDv 1 cap once daily (Last dose: 11/28/2016 08:45) 6. asmanex twist inhaler 220 mcg nightly (Last dose: 11/27/2016) 7. ventolin inhaler 2 puff as needed (Last dose: 11/28/2016 09:00) 8. diphenoxylate-atropine 2.5-0.025 mg Oral tab as needed (Last dose: 11/28/2016 09:15) 9. cyramza every wednesday chemo treatment 10. fentanyl 25 mcg/hr Topical pt72 1 patch every 72 hours due to be changed today - PMHx: esphogeal cancer; COPD; GERD; Irregular heart rate; - PSHx: feeding tube; stomach surgery; Gall Bladder Removal; Appendectomy; Tonsillectomy; Adenoidectomy; - Social history: Smoking status: Patient states former smoker of tobacco. No barriers to communication noted, The patient speaks fluent Nigerien, Speaks appropriately for age. - Family history: No immediate family members are acutely ill. - : The pt / caregiver states he / she is not on anticoagulants. Home medication list is obtained from the patient. - Exposure Risk Screening:: None identified. Vital Signs: 11/28 12:01 BP 129 / 82; Pulse 88; Resp 18 S; Temp 96.6(O); Pulse Ox 97% on R/A; Weight 65.77 kg / gr2 145 lbs (R); Height 6 ft. 0 in. (182.88 cm); Pain 4/10; 15:26 BP 122 / 78; Pulse 72; Resp 17; Temp 98.7; Pulse Ox 98% ; srm 12:01 Body Mass Index 19.67 (65.77 kg, 182.88 cm) gr2 MDM: 13:18 Financial registration complete. lg 13:24 CBC with Diff Ordered. EDMS 13:24 Complete Comphrensive Metabolic Ordered. EDMS 13:24 Wound Culture & GS - All Other Sources Ordered. EDMS 13:51 CBC with Diff Reviewed. btw 13:52 ESR Ordered. EDMS 14:01 [facility] Payment Agreement was scanned into [employer] and attached to record. lg 14:06 C REACTIVE PROTEIN QUANTITATIV Ordered. EDMS 14:48 Complete Comphrensive Metabolic Reviewed. btw 14:48 C REACTIVE PROTEIN QUANTITATIV Reviewed. btw 14:48 ESR Reviewed. btw 18:10 T-Sheet-- Draft Copy was scanned into [employer] and attached to record. klr Signatures: Dispatcher [employer] EDMS Irina Dahl RN RN srm Ganter, LoriLee, Emmanuel Reg lg Orville Garcia PA PA btw Fuller, Desiree, RN RN dsf Redder, Kathie klr The chart was reviewed and I authenticate all verbal orders and agree with the evaluation and treatment provided.Corrections: (The following items were deleted from the chart) 14:06 13:52 C REACTIVE PROTEIN QUANTITATIV+LAB ordered. EDMS EDMS Attachments: 14:01 [facility] Payment Agreement lg 18:10 T-Sheet-- Draft Copy klr Chart Complete MTDD
--- NOTE | 2016-12-03 13:54 | EDDOCDS ---
Physician Documentation [facility] Name: Ezekiel Pal Age: 81 yrs Sex: Male : 1935 Arrival Date: 11/28/2016 Time: 11:57 Bed I3 / M3 Private MD: Nicole Toht A Disposition: 11/28/16 15:03 Discharged to Home/Self Care. Impression: Gastrostomy complications, Encounter for attention to gastrostomy. - Condition is Stable. - Discharge Instructions: Gastrostomy Tube Home Guide, Adult, PEG, Home Care, [id number]. - Prescriptions for Cipro 500 mg Oral Tablet - take 1 tablet by ORAL route every 12 hours; 14 tablet. Flagyl 500 mg Oral Tablet - take 1 tablet by ORAL route every 8 hours for 10 days; 30 tablet. - Medication Reconciliation, Local Pharmacy Hours form. - Follow up: Guilherme Raphael MD; When: 2 - 3 days; Reason: Further diagnostic work-up, Recheck today's complaints, Continuance of care. - Problem is new. - Symptoms are unchanged. Historical: - Allergies: Demerol (heart stops); - Home Meds: 1. Protonix 40 mg Oral TbEC 1 tab once daily (Last dose: 11/27/2016) 2. dexamethasone 2 mg Oral tab as needed (Last dose: 11/28/2016 08:45) 3. digoxin 125 mcg Oral tab 1 tab once daily (Last dose: 11/28/2016 08:45) 4. losartan 50 mg oral tab 1 tab once daily (Last dose: 11/28/2016 08:45) 5. Spiriva with HandiHaler 18 mcg Inhl CpDv 1 cap once daily (Last dose: 11/28/2016 08:45) 6. asmanex twist inhaler 220 mcg nightly (Last dose: 11/27/2016) 7. ventolin inhaler 2 puff as needed (Last dose: 11/28/2016 09:00) 8. diphenoxylate-atropine 2.5-0.025 mg Oral tab as needed (Last dose: 11/28/2016 09:15) 9. cyramza every wednesday chemo treatment 10. fentanyl 25 mcg/hr Topical pt72 1 patch every 72 hours due to be changed today - PMHx: esphogeal cancer; COPD; GERD; Irregular heart rate; - PSHx: feeding tube; stomach surgery; Gall Bladder Removal; Appendectomy; Tonsillectomy; Adenoidectomy; - Social history: Smoking status: Patient states former smoker of tobacco. No barriers to communication noted, The patient speaks fluent Hungarian, Speaks appropriately for age. - Family history: No immediate family members are acutely ill. - : The pt / caregiver states he / she is not on anticoagulants. Home medication list is obtained from the patient. - Exposure Risk Screening:: None identified. Vital Signs: 11/28 12:01 BP 129 / 82; Pulse 88; Resp 18 S; Temp 96.6(O); Pulse Ox 97% on R/A; Weight 65.77 kg / gr2 145 lbs (R); Height 6 ft. 0 in. (182.88 cm); Pain 4/10; 15:26 BP 122 / 78; Pulse 72; Resp 17; Temp 98.7; Pulse Ox 98% ; srm 12:01 Body Mass Index 19.67 (65.77 kg, 182.88 cm) gr2 MDM: 13:18 Financial registration complete. lg 13:24 CBC with Diff Ordered. EDMS 13:24 Complete Comphrensive Metabolic Ordered. EDMS 13:24 Wound Culture & GS - All Other Sources Ordered. EDMS 13:51 CBC with Diff Reviewed. btw 13:52 ESR Ordered. EDMS 14:01 [facility] Payment Agreement was scanned into [employer] and attached to record. lg 14:06 C REACTIVE PROTEIN QUANTITATIV Ordered. EDMS 14:48 Complete Comphrensive Metabolic Reviewed. btw 14:48 C REACTIVE PROTEIN QUANTITATIV Reviewed. btw 14:48 ESR Reviewed. btw 18:10 T-Sheet-- Draft Copy was scanned into [employer] and attached to record. klr Signatures: Dispatcher [employer] EDMS Irina Dahl RN RN srm Ganter, LoriLee, Emmanuel Reg lg Orville Garcia PA PA btw Fuller, Desiree, RN RN dsf Redder, Kathie klr The chart was reviewed and I authenticate all verbal orders and agree with the evaluation and treatment provided.Corrections: (The following items were deleted from the chart) 14:06 13:52 C REACTIVE PROTEIN QUANTITATIV+LAB ordered. EDMS EDMS Attachments: 14:01 [facility] Payment Agreement lg 18:10 T-Sheet-- Draft Copy klr Chart Complete MTDD
--- NOTE | 2016-12-03 13:54 | EDDOCDS ---
Nurse's Notes [facility] Name: Ezekiel Pal Age: 81 yrs Sex: Male : 1935 Arrival Date: 11/28/2016 Time: 11:57 Bed I3 / M3 Private MD: Nicole Toth A Diagnosis: Gastrostomy complications;Encounter for attention to gastrostomy Presentation: 11/28 12:06 Presenting complaint: Patient states: has a feeding tube the stitch came out and the dsf tube moves and there was some green drainage noted around the tube. Pt had the feeding tube placed in [place] . pt wants his feeding tube checked. Adult Sepsis Screening: The patient does not have new or worsening altered mentation. Patient's respiratory rate is less than 22. Systolic blood pressure is greater than 100. Patient has a qSOFA score of 0- Negative Sepsis Screen. Suicide/Homicide risk assessment- the patient denies having any suicidal and/or homicidal ideations and does not present with any other emotional, behavioral or mental health complaints. Status: Patient is not a kosher dietary service supervisor or dependent. Transition of care: patient was not received from another setting of care. 12:06 Method Of Arrival: Walkin/Carried/Asstd dsf 12:06 Acuity: ABDOUL Level 4 dsf Triage Assessment: 12:13 General: Appears in no apparent distress, Behavior is appropriate for age, cooperative. dsf Pain: Denies pain. Neurological: Level of Consciousness is awake, alert. GI: Reports green stuff around the feeding tube. Historical: - Allergies: Demerol (heart stops); - Home Meds: 1. Protonix 40 mg Oral TbEC 1 tab once daily (Last dose: 11/27/2016) 2. dexamethasone 2 mg Oral tab as needed (Last dose: 11/28/2016 08:45) 3. digoxin 125 mcg Oral tab 1 tab once daily (Last dose: 11/28/2016 08:45) 4. losartan 50 mg oral tab 1 tab once daily (Last dose: 11/28/2016 08:45) 5. Spiriva with HandiHaler 18 mcg Inhl CpDv 1 cap once daily (Last dose: 11/28/2016 08:45) 6. asmanex twist inhaler 220 mcg nightly (Last dose: 11/27/2016) 7. ventolin inhaler 2 puff as needed (Last dose: 11/28/2016 09:00) 8. diphenoxylate-atropine 2.5-0.025 mg Oral tab as needed (Last dose: 11/28/2016 09:15) 9. cyramza every wednesday chemo treatment 10. fentanyl 25 mcg/hr Topical pt72 1 patch every 72 hours due to be changed today - PMHx: esphogeal cancer; COPD; GERD; Irregular heart rate; - PSHx: feeding tube; stomach surgery; Gall Bladder Removal; Appendectomy; Tonsillectomy; Adenoidectomy; - Social history: Smoking status: Patient states former smoker of tobacco. No barriers to communication noted, The patient speaks fluent Citizen [place], Speaks appropriately for age. - Family history: No immediate family members are acutely ill. - : The pt / caregiver states he / she is not on anticoagulants. Home medication list is obtained from the patient. - Exposure Risk Screening:: None identified. Screenin:56 Screening information is obtained from the patient. Primary language is Citizen Of [place]. Fall jam1 risk: No risks identified. Assistance ADL's: requires no assistance with activities of daily living. Abuse/DV Screen: The patient / caregiver reports he/she is: not in a situation that causes fear, pain or injury. Nutritional screening: No deficits noted. Exposure Risk Screening: None identified. Advance Directives: Currently, there is a health care proxy, daughter of pt agata jose. There is an active DNR order but there is no copy available at this time. There is a living will, but a copy is not available at this time. There is an active Power of Patient Insurance Clerk, daughter agata jose. Advance directive information does not know if advance directives have been placed in a prior [facility] medical record. Further advance directive information is declined. 13:02 Nutritional screening: On feeding tube. jam1 15:26 home support is adequate. srm Assessment: 12:46 General: Appears in no apparent distress, Behavior is appropriate for age, cooperative. mb9 Pain: Location: right upper quadrant and right lower quadrant. incision site. Pain currently is 3 out of 10 on a pain scale. Respiratory: Airway is patent Respiratory effort is even, unlabored. GI: Reports pt states, "The stitch came out of my feeding tube and its been moving around can you ultrasound it and make sure it all looks ok?". pt reports he fed himself this am with no apparent problem. pt has a small amount of drainage to the dressing that is present. 15:26 Reassessment: Patient appears in no apparent distress at this time. Patient states srm feeling better. Patient states symptoms have improved. General: Appears in no apparent distress, comfortable, Behavior is appropriate for age, cooperative. Respiratory: Airway is patent Respiratory effort is even, unlabored. Vital Signs: 12:01 BP 129 / 82; Pulse 88; Resp 18 S; Temp 96.6(O); Pulse Ox 97% on R/A; Weight 65.77 kg gr2 (R); Height 6 ft. 0 in. (182.88 cm); Pain 4/10; 15:26 BP 122 / 78; Pulse 72; Resp 17; Temp 98.7; Pulse Ox 98% ; srm 12:01 Body Mass Index 19.67 (65.77 kg, 182.88 cm) gr2 Vitals: 12:01 Log In Time: November 28, 2016 at 12:01. gr2 ED Course: 11:59 Patient visited by Tran Jaime. gr2 11:59 Nicole Toth is Private Physician. gr2 11:59 Patient moved to Waiting gr2 12:03 Patient visited by Tran Jaime. gr2 12:04 Patient moved to Pre RCE gr2 12:08 Triage Initiated dsf 12:16 Patient moved to I3 / M3 dsf 12:56 Pt greeted and oriented to ED. Patient advised of names of staff involved in care, jam1 location of call [place], wait times and NPO status. Patient has correct armband on for positive identification. Bed in low position. Call light in reach. Side rails up X 1. Door closed. 13:11 Esperanza Mitchell PA-C is PHCP. ef1 13:11 Ginny Pena MD is Attending Physician. ef1 13:11 PHCP role handed off by Esperanza Mitchell PA-C btw 13:11 Orville Garcia PA is PHCP. btw 13:12 Patient visited by Orville Garcia PA. btw 13:38 CBC with Diff Sent. nb2 13:38 Complete Comphrensive Metabolic Sent. nb2 13:38 Wound Culture & GS - All Other Sources Sent. nb2 13:59 Dressings: 4X4s X 1; pts feeding tube dressing changed at this time. site appeared to mb9 have a moderate amount of purulent drainage present that smelled foul. dressing replaced with 1 4x4. 14:01 [facility] Payment Agreement was scanned into [employer] and attached to record. lg 14:02 Patient visited by David Mendiola RN. mb9 15:03 Guilherme Raphael MD is Referral Physician. btw 15:26 The patient / caregiver is instructed regarding the plan of care and ED course. srm 15:26 No IV's were initiated during this patient's visit. No procedures done that require srm assistance. 18:10 T-Sheet-- Draft Copy was scanned into [employer] and attached to record. klr Order Results: Lab Order: CBC with Diff; SPEC'M 11/28/16 13:29 Test: WHITE BLOOD COUNT; Value: 5.9; Range: 4.0-10.0; Units: K/mm3; Status: F Test: RED BLOOD COUNT; Value: 3.66; Range: 4.30-6.10; Abnormal: Below low normal; Units: M/mm3; Status: F Test: HEMOGLOBIN; Value: 11.0; Range: 14.0-18.0; Abnormal: Below low normal; Units: g/dl; Status: F Test: HEMATOCRIT; Value: 33.6; Range: 42.0-52.0; Abnormal: Below low normal; Units: %; Status: F Test: MEAN CORPUSCULAR VOLUME; Value: 91.8; Range: 80.0-96.0; Units: fl; Status: F Test: MEAN CORPUSCULAR HEMOGLOBIN; Value: 30.0; Range: 27.0-33.0; Units: pg; Status: F Test: MEAN CORPUSCULAR HGB CONC; Value: 32.7; Range: 32.0-36.5; Units: g/dl; Status: F Test: RED CELL DISTRIBUTION WIDTH; Value: 15.8; Range: 11.5-14.5; Abnormal: Above high normal; Units: %; Status: F Test: PLATELET COUNT, AUTOMATED; Value: 143; Range: 150-450; Abnormal: Below low normal; Units: k/mm3; Status: F Test: NEUTROPHILS %; Value: 77.6; Range: 36.0-66.0; Abnormal: Above high normal; Units: %; Status: F Test: LYMPH %; Value: 12.8; Range: 24.0-44.0; Abnormal: Below low normal; Units: %; Status: F Test: MONO %; Value: 4.5; Range: 0.0-5.0; Units: %; Status: F Test: EOS %; Value: 3.3; Range: 0.0-3.0; Abnormal: Above high normal; Units: %; Status: F Test: BASO %; Value: 0.4; Range: 0.0-1.0; Units: %; Status: F Test: LARGE UNSTAINED CELL %; Value: 1.5; Range: 0.0-4.0; Units: %; Status: F Test: NEUTROPHILS #; Value: 4.6; Range: 1.8-7.7; Units: K/mm3; Status: F Test: LYMPH #; Value: 0.9; Range: 1.5-4.5; Abnormal: Below low normal; Units: K/mm3; Status: F Test: MONO #; Value: 0.3; Range: 0.0-0.8; Units: K/mm3; Status: F Test: EOS #; Value: 0.2; Range: 0.0-0.50; Units: K/mm3; Status: F Test: BASO #; Value: 0.0; Range: 0.0-0.2; Units: K/mm3; Status: F Test: LARGE UNSTAINED CELL #; Value: 0.1; Range: 0.0-0.4; Units: K/mm3; Status: F Lab Order: Complete Comphrensive Metabolic; SPEC'M 11/28/16 13:29 Test: GLUCOSE, FASTING; Value: 97; Range: 83-110; Units: MG/DL; Status: F Test: BLOOD UREA NITROGEN; Value: 31; Range: 7-18; Abnormal: Above high normal; Units: MG/DL; Status: F Test: CREATININE FOR GFR; Value: 0.75; Range: 0.70-1.30; Units: MG/DL; Status: F Test: GLOMERULAR FILTRATION RATE; Value: > 60.0; Range: >35; Status: F Test: SODIUM LEVEL; Value: 142; Range: 136-145; Units: MEQ/L; Status: F Test: POTASSIUM SERUM; Value: 4.3; Range: 3.5-5.1; Units: MEQ/L; Status: F Test: CHLORIDE LEVEL; Value: 108; Range: 98-107; Abnormal: Above high normal; Units: MEQ/L; Status: F Test: CARBON DIOXIDE LEVEL; Value: 24; Range: 21-32; Units: MEQ/L; Status: F Test: ANION GAP; Value: 10; Range: 8-16; Units: MEQ/L; Status: F Test: CALCIUM LEVEL; Value: 8.1; Range: 8.8-10.2; Abnormal: Below low normal; Units: MG/DL; Status: F Test: AST/SGOT; Value: 22; Range: 15-37; Units: U/L; Status: F Test: ALT/SGPT; Value: 29; Range: 12-78; Units: U/L; Status: F Test: ALKALINE PHOSPHATASE; Value: 75; Range: 45-117; Units: U/L; Status: F Test: BILIRUBIN,TOTAL; Value: 0.3; Range: 0.2-1.0; Units: MG/DL; Status: F Test: TOTAL PROTEIN; Value: 5.0; Range: 6.4-8.2; Abnormal: Below low normal; Units: GM/DL; Status: F Test: ALBUMIN; Value: 2.0; Range: 3.2-5.2; Abnormal: Below low normal; Units: GM/DL; Status: F Test: ALBUMIN/GLOBULIN RATIO; Value: 0.67; Range: 1.00-1.93; Abnormal: Below low normal; Status: F Test Note: ; Units are mL/min/1.73 m2 Chronic Kidney Disease Staging per NKF: Stage I & II GFR >=60 Normal to Mildly Decreased Stage III GFR 30-59 Moderately Decreased Stage IV GFR 15-29 Severely Decreased Stage V GFR <15 Very Little GFR Left ESRD GFR <15 on INSTRUMENT LENS GRINDER Lab Order: Wound Culture & GS - All Other Sources; SPEC'M 11/28/16 13:29 Test: GRAM STAIN; Value: GRAM STAIN RESULT; Status: F Test: GRAM STAIN; Value: MANY GRAM NEGATIVE RODS; Status: F Test: GRAM STAIN; Value: MODERATE GRAM POSITIVE COCCI IN PAIRS AND CLUSTERS; Status: F Test: GRAM STAIN; Value: MODERATE GRAM POSITIVE RODS; Status: F Test: WOUND CULTURE; Value: <EXTERNAL COMMENT eCWMed> FULL REPORT IN LAB NOTES (eCW and Medent).; Status: F Test: WOUND CULTURE; Value: ORGANISM 1: KLEBSIELLA PNEUMONIAE; Status: F Test: WOUND CULTURE; Value: KLEBSIELLA PNEUMONIAE; Status: F Test: WOUND CULTURE; Value: QUANTITY OF GROWTH MODERATE; Status: F Test: WOUND CULTURE; Value: STAPHYLOCOCCUS SP COAG NEG; Status: F Test: WOUND CULTURE; Value: QUANTITY OF GROWTH MODERATE; Status: F Test: WOUND CULTURE; Value: GRANULICATELLA ADIACENS; Status: F Test: WOUND CULTURE; Value: QUANTITY OF GROWTH FEW; Status: F Test: WOUND CULTURE; Value: SUSNA 1 Susceptibility standards are not available for; Status: F Test: WOUND CULTURE; Value: SONALI GRANULICATELLA Granulicatella species.; Status: F Test: WOUND CULTURE; Value: STREP CONSTELLATUS SSP CONSTEL; Status: F Test: WOUND CULTURE; Value: QUANTITY OF GROWTH MODERATE; Status: F Test: WOUND CULTURE; Value: STREPTOCOCCUS INFANTARIUS COLI; Status: F Test: WOUND CULTURE; Value: QUANTITY OF GROWTH FEW; Status: F Test: WOUND CULTURE; Value: SAME AEROBIC ISOLATE; Status: F Test: WOUND CULTURE; Value: QUANTITY OF GROWTH FEW; Status: F Test: WOUND CULTURE; Status: F Test: WOUND CULTURE; Value: QUANTITY OF GROWTH FEW; Status: F Test: WOUND CULTURE; Status: F Test: WOUND CULTURE; Value: QUANTITY OF GROWTH FEW; Status: F Test: WOUND CULTURE; Status: F Test: WOUND CULTURE; Value: QUANTITY OF GROWTH FEW; Status: F Test: WOUND CULTURE; Value: ORGANISM 2: STAPHYLOCOCCUS SP COAG NEG; Status: F Test: WOUND CULTURE; Value: KLEBSIELLA PNEUMONIAE; Status: F Test: WOUND CULTURE; Value: QUANTITY OF GROWTH MODERATE; Status: F Test: WOUND CULTURE; Value: STAPHYLOCOCCUS SP COAG NEG; Status: F Test: WOUND CULTURE; Value: QUANTITY OF GROWTH MODERATE; Status: F Test: WOUND CULTURE; Value: GRANULICATELLA ADIACENS; Status: F Test: WOUND CULTURE; Value: QUANTITY OF GROWTH FEW; Status: F Test: WOUND CULTURE; Value: SUSNA 1 Susceptibility standards are not available for; Status: F Test: WOUND CULTURE; Value: SONALI GRANULICATELLA Granulicatella species.; Status: F Test: WOUND CULTURE; Value: STREP CONSTELLATUS SSP CONSTEL; Status: F Test: WOUND CULTURE; Value: QUANTITY OF GROWTH MODERATE; Status: F Test: WOUND CULTURE; Value: STREPTOCOCCUS INFANTARIUS COLI; Status: F Test: WOUND CULTURE; Value: QUANTITY OF GROWTH FEW; Status: F Test: WOUND CULTURE; Value: SAME AEROBIC ISOLATE; Status: F Test: WOUND CULTURE; Value: QUANTITY OF GROWTH FEW; Status: F Test: WOUND CULTURE; Status: F Test: WOUND CULTURE; Value: QUANTITY OF GROWTH FEW; Status: F Test: WOUND CULTURE; Status: F Test: WOUND CULTURE; Value: QUANTITY OF GROWTH FEW; Status: F Test: WOUND CULTURE; Status: F Test: WOUND CULTURE; Value: QUANTITY OF GROWTH FEW; Status: F Test: WOUND CULTURE; Value: ORGANISM 3: GRANULICATELLA ADIACENS; Status: F Test: WOUND CULTURE; Value: KLEBSIELLA PNEUMONIAE; Status: F Test: WOUND CULTURE; Value: QUANTITY OF GROWTH MODERATE; Status: F Test: WOUND CULTURE; Value: STAPHYLOCOCCUS SP COAG NEG; Status: F Test: WOUND CULTURE; Value: QUANTITY OF GROWTH MODERATE; Status: F Test: WOUND CULTURE; Value: GRANULICATELLA ADIACENS; Status: F Test: WOUND CULTURE; Value: QUANTITY OF GROWTH FEW; Status: F Test: WOUND CULTURE; Value: SUSNA 1 Susceptibility standards are not available for; Status: F Test: WOUND CULTURE; Value: SONALI GRANULICATELLA Granulicatella species.; Status: F Test: WOUND CULTURE; Value: STREP CONSTELLATUS SSP CONSTEL; Status: F Test: WOUND CULTURE; Value: QUANTITY OF GROWTH MODERATE; Status: F Test: WOUND CULTURE; Value: STREPTOCOCCUS INFANTARIUS COLI; Status: F Test: WOUND CULTURE; Value: QUANTITY OF GROWTH FEW; Status: F Test: WOUND CULTURE; Value: SAME AEROBIC ISOLATE; Status: F Test: WOUND CULTURE; Value: QUANTITY OF GROWTH FEW; Status: F Test: WOUND CULTURE; Status: F Test: WOUND CULTURE; Value: QUANTITY OF GROWTH FEW; Status: F Test: WOUND CULTURE; Status: F Test: WOUND CULTURE; Value: QUANTITY OF GROWTH FEW; Status: F Test: WOUND CULTURE; Status: F Test: WOUND CULTURE; Value: QUANTITY OF GROWTH FEW; Status: F Test: WOUND CULTURE; Value: ORGANISM 4: STREP CONSTELLATUS SSP CONSTEL; Status: F Test: WOUND CULTURE; Value: KLEBSIELLA PNEUMONIAE; Status: F Test: WOUND CULTURE; Value: QUANTITY OF GROWTH MODERATE; Status: F Test: WOUND CULTURE; Value: STAPHYLOCOCCUS SP COAG NEG; Status: F Test: WOUND CULTURE; Value: QUANTITY OF GROWTH MODERATE; Status: F Test: WOUND CULTURE; Value: GRANULICATELLA ADIACENS; Status: F Test: WOUND CULTURE; Value: QUANTITY OF GROWTH FEW; Status: F Test: WOUND CULTURE; Value: SUSNA 1 Susceptibility standards are not available for; Status: F Test: WOUND CULTURE; Value: SONALI GRANULICATELLA Granulicatella species.; Status: F Test: WOUND CULTURE; Value: STREP CONSTELLATUS SSP CONSTEL; Status: F Test: WOUND CULTURE; Value: QUANTITY OF GROWTH MODERATE; Status: F Test: WOUND CULTURE; Value: STREPTOCOCCUS INFANTARIUS COLI; Status: F Test: WOUND CULTURE; Value: QUANTITY OF GROWTH FEW; Status: F Test: WOUND CULTURE; Value: SAME AEROBIC ISOLATE; Status: F Test: WOUND CULTURE; Value: QUANTITY OF GROWTH FEW; Status: F Test: WOUND CULTURE; Status: F Test: WOUND CULTURE; Value: QUANTITY OF GROWTH FEW; Status: F Test: WOUND CULTURE; Status: F Test: WOUND CULTURE; Value: QUANTITY OF GROWTH FEW; Status: F Test: WOUND CULTURE; Status: F Test: WOUND CULTURE; Value: QUANTITY OF GROWTH FEW; Status: F Test: WOUND CULTURE; Value: ORGANISM 5: STREPTOCOCCUS INFANTARIUS COLI; Status: F Test: WOUND CULTURE; Value: KLEBSIELLA PNEUMONIAE; Status: F Test: WOUND CULTURE; Value: QUANTITY OF GROWTH MODERATE; Status: F Test: WOUND CULTURE; Value: STAPHYLOCOCCUS SP COAG NEG; Status: F Test: WOUND CULTURE; Value: QUANTITY OF GROWTH MODERATE; Status: F Test: WOUND CULTURE; Value: GRANULICATELLA ADIACENS; Status: F Test: WOUND CULTURE; Value: QUANTITY OF GROWTH FEW; Status: F Test: WOUND CULTURE; Value: SUSNA 1 Susceptibility standards are not available for; Status: F Test: WOUND CULTURE; Value: SONALI GRANULICATELLA Granulicatella species.; Status: F Test: WOUND CULTURE; Value: STREP CONSTELLATUS SSP CONSTEL; Status: F Test: WOUND CULTURE; Value: QUANTITY OF GROWTH MODERATE; Status: F Test: WOUND CULTURE; Value: STREPTOCOCCUS INFANTARIUS COLI; Status: F Test: WOUND CULTURE; Value: QUANTITY OF GROWTH FEW; Status: F Test: WOUND CULTURE; Value: SAME AEROBIC ISOLATE; Status: F Test: WOUND CULTURE; Value: QUANTITY OF GROWTH FEW; Status: F Test: WOUND CULTURE; Status: F Test: WOUND CULTURE; Value: QUANTITY OF GROWTH FEW; Status: F Test: WOUND CULTURE; Status: F Test: WOUND CULTURE; Value: QUANTITY OF GROWTH FEW; Status: F Test: WOUND CULTURE; Status: F Test: WOUND CULTURE; Value: QUANTITY OF GROWTH FEW; Status: F Test: WOUND CULTURE; Value: ORGANISM 6: SAME AEROBIC ISOLATE; Status: F Test: WOUND CULTURE; Value: KLEBSIELLA PNEUMONIAE; Status: F Test: WOUND CULTURE; Value: QUANTITY OF GROWTH MODERATE; Status: F Test: WOUND CULTURE; Value: STAPHYLOCOCCUS SP COAG NEG; Status: F Test: WOUND CULTURE; Value: QUANTITY OF GROWTH MODERATE; Status: F Test: WOUND CULTURE; Value: GRANULICATELLA ADIACENS; Status: F Test: WOUND CULTURE; Value: QUANTITY OF GROWTH FEW; Status: F Test: WOUND CULTURE; Value: SUSNA 1 Susceptibility standards are not available for; Status: F Test: WOUND CULTURE; Value: SONALI GRANULICATELLA Granulicatella species.; Status: F Test: WOUND CULTURE; Value: STREP CONSTELLATUS SSP CONSTEL; Status: F Test: WOUND CULTURE; Value: QUANTITY OF GROWTH MODERATE; Status: F Test: WOUND CULTURE; Value: STREPTOCOCCUS INFANTARIUS COLI; Status: F Test: WOUND CULTURE; Value: QUANTITY OF GROWTH FEW; Status: F Test: WOUND CULTURE; Value: SAME AEROBIC ISOLATE; Status: F Test: WOUND CULTURE; Value: QUANTITY OF GROWTH FEW; Status: F Test: WOUND CULTURE; Status: F Test: WOUND CULTURE; Value: QUANTITY OF GROWTH FEW; Status: F Test: WOUND CULTURE; Status: F Test: WOUND CULTURE; Value: QUANTITY OF GROWTH FEW; Status: F Test: WOUND CULTURE; Status: F Test: WOUND CULTURE; Value: QUANTITY OF GROWTH FEW; Status: F Test: WOUND CULTURE; Value: ORGANISM 7: SAME AEROBIC ISOLATE; Status: F Test: WOUND CULTURE; Value: KLEBSIELLA PNEUMONIAE; Status: F Test: WOUND CULTURE; Value: QUANTITY OF GROWTH MODERATE; Status: F Test: WOUND CULTURE; Value: STAPHYLOCOCCUS SP COAG NEG; Status: F Test: WOUND CULTURE; Value: QUANTITY OF GROWTH MODERATE; Status: F Test: WOUND CULTURE; Value: GRANULICATELLA ADIACENS; Status: F Test: WOUND CULTURE; Value: QUANTITY OF GROWTH FEW; Status: F Test: WOUND CULTURE; Value: SUSNA 1 Susceptibility standards are not available for; Status: F Test: WOUND CULTURE; Value: SONALI GRANULICATELLA Granulicatella species.; Status: F Test: WOUND CULTURE; Value: STREP CONSTELLATUS SSP CONSTEL; Status: F Test: WOUND CULTURE; Value: QUANTITY OF GROWTH MODERATE; Status: F Test: WOUND CULTURE; Value: STREPTOCOCCUS INFANTARIUS COLI; Status: F Test: WOUND CULTURE; Value: QUANTITY OF GROWTH FEW; Status: F Test: WOUND CULTURE; Value: SAME AEROBIC ISOLATE; Status: F Test: WOUND CULTURE; Value: QUANTITY OF GROWTH FEW; Status: F Test: WOUND CULTURE; Status: F Test: WOUND CULTURE; Value: QUANTITY OF GROWTH FEW; Status: F Test: WOUND CULTURE; Status: F Test: WOUND CULTURE; Value: QUANTITY OF GROWTH FEW; Status: F Test: WOUND CULTURE; Status: F Test: WOUND CULTURE; Value: QUANTITY OF GROWTH FEW; Status: F Test: WOUND CULTURE; Value: ORGANISM 8: SAME AEROBIC ISOLATE; Status: F Test: WOUND CULTURE; Value: KLEBSIELLA PNEUMONIAE; Status: F Test: WOUND CULTURE; Value: QUANTITY OF GROWTH MODERATE; Status: F Test: WOUND CULTURE; Value: STAPHYLOCOCCUS SP COAG NEG; Status: F Test: WOUND CULTURE; Value: QUANTITY OF GROWTH MODERATE; Status: F Test: WOUND CULTURE; Value: GRANULICATELLA ADIACENS; Status: F Test: WOUND CULTURE; Value: QUANTITY OF GROWTH FEW; Status: F Test: WOUND CULTURE; Value: SUSNA 1 Susceptibility standards are not available for; Status: F Test: WOUND CULTURE; Value: SONALI GRANULICATELLA Granulicatella species.; Status: F Test: WOUND CULTURE; Value: STREP CONSTELLATUS SSP CONSTEL; Status: F Test: WOUND CULTURE; Value: QUANTITY OF GROWTH MODERATE; Status: F Test: WOUND CULTURE; Value: STREPTOCOCCUS INFANTARIUS COLI; Status: F Test: WOUND CULTURE; Value: QUANTITY OF GROWTH FEW; Status: F Test: WOUND CULTURE; Value: SAME AEROBIC ISOLATE; Status: F Test: WOUND CULTURE; Value: QUANTITY OF GROWTH FEW; Status: F Test: WOUND CULTURE; Status: F Test: WOUND CULTURE; Value: QUANTITY OF GROWTH FEW; Status: F Test: WOUND CULTURE; Status: F Test: WOUND CULTURE; Value: QUANTITY OF GROWTH FEW; Status: F Test: WOUND CULTURE; Status: F Test: WOUND CULTURE; Value: QUANTITY OF GROWTH FEW; Status: F Test: WOUND CULTURE; Value: ORGANISM 9: SAME AEROBIC ISOLATE; Status: F Test: WOUND CULTURE; Value: KLEBSIELLA PNEUMONIAE; Status: F Test: WOUND CULTURE; Value: QUANTITY OF GROWTH MODERATE; Status: F Test: WOUND CULTURE; Value: STAPHYLOCOCCUS SP COAG NEG; Status: F Test: WOUND CULTURE; Value: QUANTITY OF GROWTH MODERATE; Status: F Test: WOUND CULTURE; Value: GRANULICATELLA ADIACENS; Status: F Test: WOUND CULTURE; Value: QUANTITY OF GROWTH FEW; Status: F Test: WOUND CULTURE; Value: SUSNA 1 Susceptibility standards are not available for; Status: F Test: WOUND CULTURE; Value: SONALI GRANULICATELLA Granulicatella species.; Status: F Test: WOUND CULTURE; Value: STREP CONSTELLATUS SSP CONSTEL; Status: F Test: WOUND CULTURE; Value: QUANTITY OF GROWTH MODERATE; Status: F Test: WOUND CULTURE; Value: STREPTOCOCCUS INFANTARIUS COLI; Status: F Test: WOUND CULTURE; Value: QUANTITY OF GROWTH FEW; Status: F Test: WOUND CULTURE; Value: SAME AEROBIC ISOLATE; Status: F Test: WOUND CULTURE; Value: QUANTITY OF GROWTH FEW; Status: F Test: WOUND CULTURE; Status: F Test: WOUND CULTURE; Value: QUANTITY OF GROWTH FEW; Status: F Test: WOUND CULTURE; Status: F Test: WOUND CULTURE; Value: QUANTITY OF GROWTH FEW; Status: F Test: WOUND CULTURE; Status: F Test: WOUND CULTURE; Value: QUANTITY OF GROWTH FEW; Status: F Test: WOUND CULTURE; Value: GRAM NEG SENSI - VITEK 80; Status: F Test: WOUND CULTURE; Value: Method: VIT2; Status: F Test: WOUND CULTURE; Value: EXTD BRD SPCTRM BETA LACTAMASE -; Status: F Test: WOUND CULTURE; Value: TRIMETHOPRIM/SULFAMETHOXAZOLE <=20 S; Status: F Test: WOUND CULTURE; Value: AMPICILLIN >=32 R; Status: F Test: WOUND CULTURE; Value: GENTAMICIN <=1 S; Status: F Test: WOUND CULTURE; Value: CEFAZOLIN <=4 S; Status: F Test: WOUND CULTURE; Value: LEVOFLOXACIN <=0.12 S; Status: F Test: WOUND CULTURE; Value: TOBRAMYCIN <=1 S; Status: F Test: WOUND CULTURE; Value: CEFTRIAXONE <=1 S; Status: F Test: WOUND CULTURE; Value: CEFTAZIDIME <=1 S; Status: F Test: WOUND CULTURE; Value: AMPICILLIN/SULBACTAM 4 S; Status: F Test: WOUND CULTURE; Value: PIPERACILLIN/TAZOBACTAM <=4 S; Status: F Test: WOUND CULTURE; Value: AZTREONAM <=1 S; Status: F Test: WOUND CULTURE; Value: ERTAPENEM <=0.5 S; Status: F Test: WOUND CULTURE; Value: MEROPENEM <=0.25 S; Status: F Test: WOUND CULTURE; Value: TIGECYCLINE <=0.5 S; Status: F Test: WOUND CULTURE; Value: CEFEPIME <=1 S; Status: F Test: WOUND CULTURE; Value: GRAM POS SENSI - VITEK 67; Status: F Test: WOUND CULTURE; Value: Method: VIT2; Status: F Test: WOUND CULTURE; Value: TETRACYCLINE 2 S; Status: F Test: WOUND CULTURE; Value: PENICILLIN G >=0.5 R; Status: F Test: WOUND CULTURE; Value: TRIMETHOPRIM/SULFAMETHOXAZOLE <=10 S; Status: F Test: WOUND CULTURE; Value: ERYTHROMYCIN >=8 R; Status: F Test: WOUND CULTURE; Value: GENTAMICIN <=0.5 S; Status: F Test: WOUND CULTURE; Value: CLINDAMYCIN <=0.25 R; Status: F Test: WOUND CULTURE; Value: OXACILLIN >=4 R; Status: F Test: WOUND CULTURE; Value: VANCOMYCIN 2 S; Status: F Test: WOUND CULTURE; Value: LINEZOLID (ZYVOX) 1 S; Status: F Test: WOUND CULTURE; Value: GRAM POS SENSI - ST02; Status: F Test: WOUND CULTURE; Value: Method: VIT2; Status: F Test: WOUND CULTURE; Value: TETRACYCLINE 1 S; Status: F Test: WOUND CULTURE; Value: PENICILLIN G 0.12 I; Status: F Test: WOUND CULTURE; Value: AMPICILLIN <=0.25 S; Status: F Test: WOUND CULTURE; Value: ERYTHROMYCIN >=8 R; Status: F Test: WOUND CULTURE; Value: CLINDAMYCIN >=1 R; Status: F Test: WOUND CULTURE; Value: LEVOFLOXACIN 0.5 S; Status: F Test: WOUND CULTURE; Value: VANCOMYCIN 0.5 S; Status: F Test: WOUND CULTURE; Value: MOXIFLOXACIN (AVELOX) 0.25 S; Status: F Test: WOUND CULTURE; Value: CEFTRIAXONE 1 I; Status: F Test: WOUND CULTURE; Value: CEFOTAXIME 0.5 I; Status: F Test: WOUND CULTURE; Value: GRAM POS SENSI - ST02; Status: F Test: WOUND CULTURE; Value: Method: VIT2; Status: F Test: WOUND CULTURE; Value: TETRACYCLINE >=16 R; Status: F Test: WOUND CULTURE; Value: PENICILLIN G <=0.06 S; Status: F Test: WOUND CULTURE; Value: AMPICILLIN <=0.25 S; Status: F Test: WOUND CULTURE; Value: ERYTHROMYCIN <=0.12 S; Status: F Test: WOUND CULTURE; Value: CLINDAMYCIN <=0.25 S; Status: F Test: WOUND CULTURE; Value: LEVOFLOXACIN 1 S; Status: F Test: WOUND CULTURE; Value: VANCOMYCIN 0.5 S; Status: F Test: WOUND CULTURE; Value: MOXIFLOXACIN (AVELOX) 0.25 S; Status: F Test: WOUND CULTURE; Value: CEFTRIAXONE <=0.12 S; Status: F Test: WOUND CULTURE; Value: CEFOTAXIME <=0.12 S; Status: F Lab Order: ESR; SPEC'M 11/28/16 13:29 Test: ERYTHROCYTE SEDIMENTATION RATE; Value: 16; Range: 0-20; Units: mm/hr; Status: F Lab Order: C REACTIVE PROTEIN QUANTITATIV; SPEC'M 11/28/16 13:29 Test: C REACTIVE PROTEIN QUANTITATIV; Value: 1.48; Range: 0.00-0.30; Abnormal: Above high normal; Units: MG/DL; Status: F Outcome: 15:03 Discharge ordered by Provider. btw 15:26 Discharge Assessment: Patient awake, alert and oriented x 3. No cognitive and/or srm functional deficits noted. Patient verbalized understanding of disposition instructions. patient administered narcotics - no. The following High Risk Discharge criteria are identified: None. Discharged to home ambulatory. Condition: good Condition: stable Condition: improved. Discharge instructions given to patient, Instructed on discharge instructions, follow up and referral plans. medication usage, Demonstrated understanding of instructions, medications, Pt was receptive of discharge instructions/ teaching. Prescriptions given X 2. No special radiology studies were completed. Property :Personal belongings accompany Pt. 15:28 Patient left the ED. srm Addendum: 12/03/2016 13:51 Narrative: Wound culture results reviewed with Nimo Carlton NP and no change in kcs treatment needed. Signatures: Alexsandra Ball, RN RN Irina Jimenez RN RN srm Sara Brown, MANAGER REAL ESTATE MANAGER REAL ESTATE jam1 Melissa Pate, Reg Reg lg Esperanza Mitchell, PA-C PA-C ef1 Orville Garcia, Mamta Justice RN RN dsf Tran Jaime gr2 David Mendiola RN RN mb9 Jenni Lowe Nicole nb2 Corrections: (The following items were deleted from the chart) 11/28 12:14 12:06 Presenting complaint: Patient states: has a feeding tube the stitch came out and dsf the tube moves and there was some green drainage noted around the tube. Pt had the feeding tube placed in [place] ds 12:14 12:06 Acuity: ABDOUL Level 3 dsf dsf Chart Complete MTDD
--- NOTE | 2016-12-03 13:54 | EDDOCDS ---
Physician Documentation [facility] Name: Ezekiel Pal Age: 81 yrs Sex: Male : 1935 Arrival Date: 11/28/2016 Time: 11:57 Bed I3 / M3 Private MD: Nicole Toth A Disposition: 11/28/16 15:03 Discharged to Home/Self Care. Impression: Gastrostomy complications, Encounter for attention to gastrostomy. - Condition is Stable. - Discharge Instructions: Gastrostomy Tube Home Guide, Adult, PEG, Home Care, [id number]. - Prescriptions for Cipro 500 mg Oral Tablet - take 1 tablet by ORAL route every 12 hours; 14 tablet. Flagyl 500 mg Oral Tablet - take 1 tablet by ORAL route every 8 hours for 10 days; 30 tablet. - Medication Reconciliation, Local Pharmacy Hours form. - Follow up: Guilherme Raphael MD; When: 2 - 3 days; Reason: Further diagnostic work-up, Recheck today's complaints, Continuance of care. - Problem is new. - Symptoms are unchanged. Historical: - Allergies: Demerol (heart stops); - Home Meds: 1. Protonix 40 mg Oral TbEC 1 tab once daily (Last dose: 11/27/2016) 2. dexamethasone 2 mg Oral tab as needed (Last dose: 11/28/2016 08:45) 3. digoxin 125 mcg Oral tab 1 tab once daily (Last dose: 11/28/2016 08:45) 4. losartan 50 mg oral tab 1 tab once daily (Last dose: 11/28/2016 08:45) 5. Spiriva with HandiHaler 18 mcg Inhl CpDv 1 cap once daily (Last dose: 11/28/2016 08:45) 6. asmanex twist inhaler 220 mcg nightly (Last dose: 11/27/2016) 7. ventolin inhaler 2 puff as needed (Last dose: 11/28/2016 09:00) 8. diphenoxylate-atropine 2.5-0.025 mg Oral tab as needed (Last dose: 11/28/2016 09:15) 9. cyramza every wednesday chemo treatment 10. fentanyl 25 mcg/hr Topical pt72 1 patch every 72 hours due to be changed today - PMHx: esphogeal cancer; COPD; GERD; Irregular heart rate; - PSHx: feeding tube; stomach surgery; Gall Bladder Removal; Appendectomy; Tonsillectomy; Adenoidectomy; - Social history: Smoking status: Patient states former smoker of tobacco. No barriers to communication noted, The patient speaks fluent [place], Speaks appropriately for age. - Family history: No immediate family members are acutely ill. - : The pt / caregiver states he / she is not on anticoagulants. Home medication list is obtained from the patient. - Exposure Risk Screening:: None identified. Vital Signs: 11/28 12:01 BP 129 / 82; Pulse 88; Resp 18 S; Temp 96.6(O); Pulse Ox 97% on R/A; Weight 65.77 kg / gr2 145 lbs (R); Height 6 ft. 0 in. (182.88 cm); Pain 4/10; 15:26 BP 122 / 78; Pulse 72; Resp 17; Temp 98.7; Pulse Ox 98% ; srm 12:01 Body Mass Index 19.67 (65.77 kg, 182.88 cm) gr2 MDM: 13:18 Financial registration complete. lg 13:24 CBC with Diff Ordered. EDMS 13:24 Complete Comphrensive Metabolic Ordered. EDMS 13:24 Wound Culture & GS - All Other Sources Ordered. EDMS 13:51 CBC with Diff Reviewed. btw 13:52 ESR Ordered. EDMS 14:01 [facility] Payment Agreement was scanned into [employer] and attached to record. lg 14:06 C REACTIVE PROTEIN QUANTITATIV Ordered. EDMS 14:48 Complete Comphrensive Metabolic Reviewed. btw 14:48 C REACTIVE PROTEIN QUANTITATIV Reviewed. btw 14:48 ESR Reviewed. btw 18:10 T-Sheet-- Draft Copy was scanned into [employer] and attached to record. klr Signatures: Dispatcher [employer] EDMS Irina Dahl RN RN srm Ganter, LoriLee, Emmanuel Reg lg Orville Garcia PA PA btw Fuller, Desiree, RN RN dsf Redder, Kathie klr The chart was reviewed and I authenticate all verbal orders and agree with the evaluation and treatment provided.Corrections: (The following items were deleted from the chart) 14:06 13:52 C REACTIVE PROTEIN QUANTITATIV+LAB ordered. EDMS EDMS Attachments: 14:01 [facility] Payment Agreement lg 18:10 T-Sheet-- Draft Copy klr Chart Complete MTDD
--- NOTE | 2016-12-03 13:54 | EDDOCDS ---
Physician Documentation [facility] Name: Ezekiel Pal Age: 81 yrs Sex: Male : 1935 Arrival Date: 11/28/2016 Time: 11:57 Bed I3 / M3 Private MD: Nicole Toth A Disposition: 11/28/16 15:03 Discharged to Home/Self Care. Impression: Gastrostomy complications, Encounter for attention to gastrostomy. - Condition is Stable. - Discharge Instructions: Gastrostomy Tube Home Guide, Adult, PEG, Home Care, [id number]. - Prescriptions for Cipro 500 mg Oral Tablet - take 1 tablet by ORAL route every 12 hours; 14 tablet. Flagyl 500 mg Oral Tablet - take 1 tablet by ORAL route every 8 hours for 10 days; 30 tablet. - Medication Reconciliation, Local Pharmacy Hours form. - Follow up: Guilherme Raphael MD; When: 2 - 3 days; Reason: Further diagnostic work-up, Recheck today's complaints, Continuance of care. - Problem is new. - Symptoms are unchanged. Historical: - Allergies: Demerol (heart stops); - Home Meds: 1. Protonix 40 mg Oral TbEC 1 tab once daily (Last dose: 11/27/2016) 2. dexamethasone 2 mg Oral tab as needed (Last dose: 11/28/2016 08:45) 3. digoxin 125 mcg Oral tab 1 tab once daily (Last dose: 11/28/2016 08:45) 4. losartan 50 mg oral tab 1 tab once daily (Last dose: 11/28/2016 08:45) 5. Spiriva with HandiHaler 18 mcg Inhl CpDv 1 cap once daily (Last dose: 11/28/2016 08:45) 6. asmanex twist inhaler 220 mcg nightly (Last dose: 11/27/2016) 7. ventolin inhaler 2 puff as needed (Last dose: 11/28/2016 09:00) 8. diphenoxylate-atropine 2.5-0.025 mg Oral tab as needed (Last dose: 11/28/2016 09:15) 9. cyramza every wednesday chemo treatment 10. fentanyl 25 mcg/hr Topical pt72 1 patch every 72 hours due to be changed today - PMHx: esphogeal cancer; COPD; GERD; Irregular heart rate; - PSHx: feeding tube; stomach surgery; Gall Bladder Removal; Appendectomy; Tonsillectomy; Adenoidectomy; - Social history: Smoking status: Patient states former smoker of tobacco. No barriers to communication noted, The patient speaks fluent [place], Speaks appropriately for age. - Family history: No immediate family members are acutely ill. - : The pt / caregiver states he / she is not on anticoagulants. Home medication list is obtained from the patient. - Exposure Risk Screening:: None identified. Vital Signs: 11/28 12:01 BP 129 / 82; Pulse 88; Resp 18 S; Temp 96.6(O); Pulse Ox 97% on R/A; Weight 65.77 kg / gr2 145 lbs (R); Height 6 ft. 0 in. (182.88 cm); Pain 4/10; 15:26 BP 122 / 78; Pulse 72; Resp 17; Temp 98.7; Pulse Ox 98% ; srm 12:01 Body Mass Index 19.67 (65.77 kg, 182.88 cm) gr2 MDM: 13:18 Financial registration complete. lg 13:24 CBC with Diff Ordered. EDMS 13:24 Complete Comphrensive Metabolic Ordered. EDMS 13:24 Wound Culture & GS - All Other Sources Ordered. EDMS 13:51 CBC with Diff Reviewed. btw 13:52 ESR Ordered. EDMS 14:01 [facility] Payment Agreement was scanned into [employer] and attached to record. lg 14:06 C REACTIVE PROTEIN QUANTITATIV Ordered. EDMS 14:48 Complete Comphrensive Metabolic Reviewed. btw 14:48 C REACTIVE PROTEIN QUANTITATIV Reviewed. btw 14:48 ESR Reviewed. btw 18:10 T-Sheet-- Draft Copy was scanned into [employer] and attached to record. klr Signatures: Dispatcher [employer] EDMS Irina Dahl RN RN srm Ganter, LoriLee, Emmanuel Reg lg Orville Garcia PA PA btw Fuller, Desiree, RN RN dsf Redder, Kathie klr The chart was reviewed and I authenticate all verbal orders and agree with the evaluation and treatment provided.Corrections: (The following items were deleted from the chart) 14:06 13:52 C REACTIVE PROTEIN QUANTITATIV+LAB ordered. EDMS EDMS Attachments: 14:01 [facility] Payment Agreement lg 18:10 T-Sheet-- Draft Copy klr Chart Complete MTDD
== END 2016-11-28 15:28 | disposition home or self-care (01) ==
LOC: M ED 11:57
DX: K94.23 Gastrostomy malfunction (principal); C15.9 Malignant neoplasm of esophagus, unspecified; J44.9 Chronic obstructive pulmonary disease, unspecified; K21.9 Gastro-esophageal reflux disease without esophagitis; R00.0 Tachycardia, unspecified; Z79.899 Other long term (current) drug therapy; Z79.51 Long term (current) use of inhaled steroids; Z88.5 Allergy status to narcotic agent; Z87.891 Personal history of nicotine dependence